=== PATIENT | female | born 1985 | race Caucasian/White ===

== ENCOUNTER 2020-06-20 10:55 | Outpatient (REF) | payer MEDICAID, SELFPAY ==
--- NOTE | 2020-06-20 11:00 | XR_ITS ---
EXAMINATION: XR FOOT, RIGHT CLINICAL INFORMATION: Pain COMPARISON: Previous x-ray September 2019 TECHNIQUE: AP, lateral, and oblique views of the right foot. FINDINGS: There is a healing transverse nondisplaced fracture of the base of the fifth metatarsal bone with some lucency and periosteal reaction still seen on the lateral view. No acute fracture or dislocation is seen. Joint spaces are normal. Soft tissues are normal. XR/XR foot RT min 3V IMPRESSION: Healing nondisplaced fracture of the base of the fifth metatarsal bone.
== END 2020-06-20 10:56 | disposition home or self-care (01) ==
LOC: HO.XRAY 10:55
PROVIDERS: PCP Registered Nurse; Visit Provider Physician Assistant
DX: M17.12 Unilateral primary osteoarthritis, left knee (principal); M79.671 Pain in right foot
CPT/HCPCS: 73630; 99212

== ENCOUNTER 2020-07-18 13:04 | Outpatient (REF) | payer MEDICAID, SELFPAY | END 2020-07-18 13:05 | disposition home or self-care (01) | LOC: HO.LAB 13:04 | PROVIDERS: Visit Provider Internal Medicine | DX: Z20.822 Contact with and (suspected) exposure to COVID-19 (principal) | CPT/HCPCS: 36415; C9803; U0003; U0005 ==

== ENCOUNTER 2020-07-29 11:43 | Outpatient (REF) | payer MEDICAID, SELFPAY | END 2020-07-29 11:44 | disposition home or self-care (01) | LOC: HO.LAB 11:43 | PROVIDERS: Visit Provider Internal Medicine | DX: Z20.822 Contact with and (suspected) exposure to COVID-19 (principal) | CPT/HCPCS: 36415; C9803; U0003; U0005 ==

== ENCOUNTER 2020-08-13 10:00 | Outpatient (RCR) | payer MEDICAID, SELFPAY | END 2021-02-10 10:15 | disposition home or self-care (01) | LOC: HO.PT 10:00 | PROVIDERS: PCP Registered Nurse; Visit Provider Registered Nurse | DX: M25.562 Pain in left knee (principal); G89.29 Other chronic pain | CPT/HCPCS: 97110; 97140; 97162 ==

== ENCOUNTER 2021-05-03 13:55 | Emergency (ER) | payer MEDICAID, SELFPAY ==
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
[2021-05-03 14:10] VITALS: BP 105/63; PULSE 84; RESP 18; TEMP 36.4; O2SAT 97; BMI 31.2
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
== END 2021-05-03 18:42 | disposition home or self-care (01) ==
PROVIDERS: Emergency Provider Emergency Medicine Emergency Medical Services; PCP Registered Nurse
DX: S39.012A Strain of muscle, fascia and tendon of lower back, initial encounter (principal); S16.1XXA Strain of muscle, fascia and tendon at neck level, initial encounter; S86.912A Strain of unspecified muscle(s) and tendon(s) at lower leg level, left leg, initial encounter; G44.309 Post-traumatic headache, unspecified, not intractable; M54.2 Cervicalgia; V47.5XXA Car driver injured in collision with fixed or stationary object in traffic accident, initial encounter; Y93.9 Activity, unspecified; Y92.411 Interstate highway as the place of occurrence of the external cause; Y99.9 Unspecified external cause status
CPT/HCPCS: 70450; 72125; 72128; 72131; 73564; 99283; 99284

== ENCOUNTER 2021-08-10 12:08 | Emergency (ER) | payer MEDICAID, SELFPAY ==
[2021-08-10 12:21] VITALS: BP 123/73; PULSE 68; RESP 18; TEMP 36.9; O2SAT 100; BMI 35.4
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
[2021-08-10 13:59] LABS: MANUAL DIFF FLAG NO
[2021-08-10 14:02] LABS: Basophils Absolute Auto 0.1 X10*3/uL (0.0-0.2); Basophils Percent Auto 1.1 % (0-2); Eosinophils Absolute Auto 0.1 X10*3/uL (0.0-0.4); Eosinophils Percent Auto 0.9 % (0-4); Hematocrit 44.9 % (37.0-47.0); Hemoglobin 14.9 g/dl (12.0-16.0); Imm Gran Abs Auto 0.01 X10*3/uL (0.00-0.03); Imm Gran Pct Auto 0.2 % (0.0-0.4); Lymphocytes Absolute Auto 2.5 X10*3/uL (1.2-4.9); Lymphocytes Percent Auto 45.6 % (20-40); Mean Corpuscular HGB Conc 33.2 g/dl (31.0-35.0); Mean Corpuscular Hemoglobin 29.9 pg (27.0-33.0); Mean Corpuscular Volume 90.2 fL (80.0-98.0); Mean Platelet Volume 10.1 fL (9.4-12.3); Monocytes Absolute Auto 0.4 X10*3/uL (0.1-1.2); Monocytes Percent Auto 7.2 % (2-11); Neutrophils Absolute Auto 2.5 x10*3/uL (2.0-8.3); Platelet Count 315 X10*3/uL (160-400); Red Blood Count 4.98 X10*6/uL (4.20-5.50); Red Cell Distribution Width 13.2 % (11.0-16.0); White Blood Count 5.6 X10*3/uL (4.8-10.8)
[2021-08-10 14:12] LABS: UPreg QC Valid YES; Urine Pregnancy NEGATIVE (NEGATIVE)
[2021-08-10 14:15] LABS: Anion Gap 11 (12-20); Blood Urea Nitrogen 7 mg/dL (9-16); Carbon Dioxide 28 mmol/L (22-29); Chloride 106 mmol/L (96-108); Estimated Glomerular Filt Rate > 60; Glucose Random 136 mg/dL (60-115); Sodium 141 mmol/L (135-145)
[2021-08-10 14:30] LABS: Amphetamine Screen Urine Not Detected (Not Detect); Barbiturates, Urine Not Detected (Not Detect); Benzodiazepines Screen Urine Not Detected (Not Detect); Cannabinoid Screen Urine POSITIVE (Not Detect); Cocaine Screen Urine Not Detected (Not Detect); Fentanyl, urine Not Detected (Not Detect); Opiate Screen Urine Not Detected (Not Detect); Phencyclidine Screen Urine Not Detected (Not Detect)
--- NOTE | 2021-08-10 14:56 | PC.NURSE ---
pt evaluated by care team.
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
== END 2021-08-10 16:38 | disposition home or self-care (01) ==
PROVIDERS: Emergency Provider Emergency Medicine
DX: F10.10 Alcohol abuse, uncomplicated (principal); Y90.9 Presence of alcohol in blood, level not specified; F12.90 Cannabis use, unspecified, uncomplicated; Z72.89 Other problems related to lifestyle; Z65.3 Problems related to other legal circumstances
CPT/HCPCS: 36415; 80048; 80307; 81025; 85025; 99283; 99284

== ENCOUNTER 2022-12-16 08:01 | Outpatient (REF) | payer MEDICAID, SELFPAY | END 2022-12-16 08:02 | disposition home or self-care (01) | LOC: HO.HOSX 08:01 | PROVIDERS: Visit Provider Orthopaedic Surgery | DX: Z13.89 Encounter for screening for other disorder (principal) ==

== ENCOUNTER 2022-12-30 11:38 | Outpatient (REF) | payer MEDICAID, SELFPAY ==
--- NOTE | ~2022-12-30 | XR_ITS ---
EXAMINATION: XR KNEE, LEFT CLINICAL INFORMATION: Left knee pain. COMPARISON: 05/03/2021 TECHNIQUE: Three views of the left knee. FINDINGS: There is mild narrowing of the medial joint space compartment. There is prominent spurring laterally about the medial and lateral joint space compartments. There is severe degenerative change of the patellofemoral joint with loss of the lateral joint space compartment with marginal spurring, sclerosis, and subchondral cyst formation. No significant effusion is appreciated. XR/XR knee LT 3V IMPRESSION: Severe degenerative change of the left patellofemoral joint. Mild degenerative change of the medial and lateral joint space compartments. There has been some mild progression in disease since study of 05/03/2021.
== END 2022-12-30 11:39 | disposition home or self-care (01) ==
LOC: HO.HOSX 11:38
PROVIDERS: Visit Provider Orthopaedic Surgery
DX: M25.562 Pain in left knee (principal)
CPT/HCPCS: 73562; 99202

== ENCOUNTER 2022-12-30 12:47 | Outpatient (AMB) | payer MEDICAID, SELFPAY ==
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
[2022-12-30 13:18] VITALS: BMI 36.9
== END 2022-12-30 16:29 | disposition home or self-care (01) ==
PROVIDERS: Visit Provider Orthopaedic Surgery
DX: M25.562 Pain in left knee (principal)
CPT/HCPCS: 99202

== ENCOUNTER 2023-01-20 09:24 | Outpatient (REF) | payer MEDICAID, SELFPAY ==
--- NOTE | ~2023-01-20 | US_ITS ---
EXAMINATION: US VENOUS ULTRASOUND WITH DOPPLER LOWER EXTREMITY, RIGHT CLINICAL INFORMATION: Right lower extremity pain. COMPARISON: None available. TECHNIQUE: Ultrasound of the deep veins is performed from the hip to the calf with compression sonography and color and pulse Doppler assessment. Spectral analysis with color-flow imaging is performed. FINDINGS: There is normal venous compression and respiratory variation and augmented flow. The visualized common femoral vein, superficial femoral vein, profunda femoral vein, popliteal vein, and the trifurcation region shows no evidence of deep venous thrombosis. If the patient's symptoms persist, followup ultrasound in 5 days 7 days might be of value to exclude proximal propagation from a non-visualized calf vein. US/US venous duplex LE RT IMPRESSION: No DVT demonstrated in the right lower extremity.
== END 2023-01-20 09:25 | disposition home or self-care (01) ==
LOC: HO.US 09:24
PROVIDERS: Visit Provider Emergency Medicine
DX: M25.561 Pain in right knee (principal)
CPT/HCPCS: 93971

== ENCOUNTER 2023-01-21 13:58 | Outpatient (REF) | payer MEDICAID, SELFPAY | END 2023-01-21 13:59 | disposition home or self-care (01) | LOC: HO.XRAY 13:58 | PROVIDERS: PCP Registered Nurse; Visit Provider Orthopaedic Surgery | DX: Z13.89 Encounter for screening for other disorder (principal) ==

== ENCOUNTER 2023-02-17 07:43 | Outpatient (REF) | payer MEDICAID, SELFPAY | END 2023-02-17 07:44 | disposition home or self-care (01) | LOC: HO.HOSX 07:43 | PROVIDERS: Visit Provider Orthopaedic Surgery | DX: Z13.89 Encounter for screening for other disorder (principal) ==

== ENCOUNTER 2023-02-18 11:25 | Outpatient (AMB) | payer MEDICAID, SELFPAY ==
--- NOTE | 2023-02-18 11:35 | MHC.OFFVIS ---
Intake Vital Signs 02/18/23 11:37 Height 5 ft 9 in Weight 250 lb BMI 36.9 Intake Visit Reasons: New Prob - right knee pain Intake Note: Keri is a 37 year old female who presents today with a new problem of right knee pain and giving way. The patient states that she injured her right knee several years ago while playing sports. She twisted her knee and had acute onset of pain. Since that time her symptoms have gotten worse in spite of continued non operative treatments. She has had injections in the past which gave her minimal relief. She has also done physical therapy for 12 weeks over the last 6 months which aggravated her pain. She has tried Tylenol and Celebrex which gave her minimal relief. She states that her right knee will give out several times per day. She also has similar symptoms in her left knee. The patient states that her right knee symptoms are more severe than are her left at this time. 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 Physical Exam Vital Signs: BMI result Body Mass Index 36.9 Const Other: Well-nourished well-developed very friendly female awake alert and oriented x3 in no acute distress Extrem Other: Bilateral lower extremity examination shows good capillary refill, no skin lesions noted, normal sensation light touch Right knee examination shows a minimal effusion, mild crepitus with range of motion, tenderness along her medial joint line, positive Nash's test, no instability Results Reviewed Results Reviewed: X-rays of the patient's right knee show mild to moderate diffuse joint space narrowing, no acute bony abnormalities Assessment & Plan Assessment & Plan (1) Right knee pain: Code(s): M25.561 - Pain in right knee Plan: Ms. Eric Angulo presents with progressively worsening right knee pain and mechanical symptoms most likely due to a medial meniscus tear. Thus, I will send the patient for an MRI of her right knee for further evaluation. I will see her back once the MRI is completed to discuss the findings and treatment options. Feel free to call me at any time should questions regarding her orthopedic management arise. I spent 22 minutes in reviewing the patient's records and imaging studies, seeing the patient and documenting in the medical record. Orders: Orders MR knee RT wo con Today M25.561 - Pain in right knee XR knee RT 3V Today M25.561 - Pain in right knee Coding Level of Care Code Est Pt Level 2 (87283) Diagnoses Right knee pain M25.561
[2023-02-18 11:37] VITALS: BMI 36.9
== END 2023-02-18 11:57 | disposition home or self-care (01) ==
PROVIDERS: PCP Registered Nurse; Visit Provider Orthopaedic Surgery
DX: M25.561 Pain in right knee (principal)
CPT/HCPCS: 99212

== ENCOUNTER 2023-02-18 11:25 | Outpatient (REF) | payer MEDICAID, SELFPAY ==
--- NOTE | ~2023-02-18 | XR_ITS ---
EXAMINATION: XR KNEE, RIGHT CLINICAL INFORMATION: Pain. COMPARISON: None available. TECHNIQUE: AP, lateral and axial views of the right knee are submitted. FINDINGS: Bony alignment and mineralization are normal. The lateral and medial joint space compartments are well-maintained. There is moderately severe narrowing of the patellofemoral compartment, most pronounced laterally. There is a patella kimber configuration. There is tricompartment peripheral osteophyte formation. No fracture, dislocation or joint effusion is seen. An accessory ossification center is seen at the lateral aspect of the patella. There is no foreign body. XR/XR knee RT 3V IMPRESSION: 1. There is tricompartment osteoarthritic change of the right knee, most pronounced in the patellofemoral compartment, where it is moderately severe. 2. 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 3. There is no fracture, dislocation or joint effusion.
== END 2023-02-18 11:26 | disposition home or self-care (01) ==
LOC: HO.HOSX 11:25
PROVIDERS: PCP Registered Nurse; Visit Provider Orthopaedic Surgery
DX: M25.561 Pain in right knee (principal)
CPT/HCPCS: 73562; 99212

== ENCOUNTER 2023-05-20 10:42 | Outpatient (AMB) | payer MEDICAID, SELFPAY ==
[2023-05-20 11:40] VITALS: BMI 36.9
--- NOTE | 2023-05-20 11:40 | A.OFFVIS_ITS ---
Intake Vital Signs 05/20/23 11:40 Height 5 ft 9 in Weight 250 lb BMI 36.9 Intake Visit Reasons: OV- MRI Review RT Knee Medial Meniscus tear Intake Note: Keri is a 37 year old female who presents today for an MRI review of her right knee. She was last seen with Dr. Andrea who referred her to Dr. Zayas for surgical discussion. Allergies No Known Allergies [No Known Allergies*] Allergy (Verified 05/20/23 11:40) HPI OV- MRI Review RT Knee Medial Meniscus tear HPI Details Keri is a 37 year old woman who presents for an MRI review of her right knee pain. She complains of pain and weakness with daily activity. She says her knee gives way on her several times daily, and she has a hx of falls. She found minimal relief from injections or Celebrex, and says PT made her pain worse. She reports injuring her knee several years ago while playing sports, and has been having pain since. She reports similar symptoms in her left knee, but this is not as severe as her right knee. 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 Review of Systems Const All systems reviewed & are unremarkable except as noted in HPI and below Physical Exam Vital Signs: BMI result Body Mass Index 36.9 Const General: no acute distress, alert and awake Orientation/consciousness: patient oriented x3 HEENT Head: Yes normocephalic and Yes atraumatic Eyes EOM: EOMs intact bilaterally Resp Effort & Inspection: normal respiratory effort and able to speak in complete sentences Cardio Jugular venous distension: no JVD Skin General skin exam: turgor normal Rashes: no rashes Neuro General: patient oriented x3 Extrem Other: 1+valgus instability right valgus alignment bilaterally 1+ lachmans with pivot shift not appreciable lateral subluxation of patella Psych Appearance: grossly normal Affect: normal affect Attitude: cooperative Results Reviewed Results Reviewed: I personally reviewed relevant radiographs. There is tricompartment osteoarthritic change of the right knee, most pronounced in the patellofemoral compartment, where it is moderately severe. 2. 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 3. There is no fracture, dislocation or joint effusion. I personally reviewed the MR images. ACL tear and G3 Distal MCL Assessment & Plan Assessment & Plan (1) Valgus deformity, not elsewhere classified, left knee: Code(s): M21.062 - Valgus deformity, not elsewhere classified, left knee Plan: Valgus pattern OA that is severe on right. She is 37 and her BMI is 36. This is a difficult problem. For now PT and weight loss (2) Arthritis of right knee: Code(s): M17.11 - Unilateral primary osteoarthritis, right knee (3) ACL tear: Code(s): S83.519A - Sprain of anterior cruciate ligament of unspecified knee, initial encounter Plan: ACL tear in setting of OA. surgery contra indicated (4) Tear of MCL (medial collateral ligament) of knee: Code(s): S83.419A - Sprain of medial collateral ligament of unspecified knee, initial encounter Plan: brace given and PT rx written Plan Scribed for Zia Zayas MD by Broderick Hope, medical psychotherapist, on 05/20/23 at 11:55 AM, EST. Orders: Orders PT Evaluation and Treatment Today M17.11 - Unilateral primary osteoarthritis, right knee, M21.062 - Valgus deformity, not elsewhere classified, left knee, S83.419A - Sprain of medial collateral ligament of unspecified knee, initial encounter, S83.519A - Sprain of anterior cruciate ligament of unspecified knee, initial encounter Coding Level of Care Code Est Pt Level 4 (64656) Diagnoses Valgus deformity, not elsewhere classified, left knee M21.062 Arthritis of right knee M17.11 ACL tear S83.519A Tear of MCL (medial collateral ligament) of knee S83.419A
== END 2023-05-20 12:44 | disposition home or self-care (01) ==
PROVIDERS: PCP Registered Nurse; Visit Provider Orthopaedic Surgery
DX: M21.062 Valgus deformity, not elsewhere classified, left knee (principal); M17.11 Unilateral primary osteoarthritis, right knee; S83.511A Sprain of anterior cruciate ligament of right knee, initial encounter; S83.411A Sprain of medial collateral ligament of right knee, initial encounter
CPT/HCPCS: 99214

== ENCOUNTER → 2023-05-20 10:42 | Outpatient (BNVA) | payer MEDICAID, SELFPAY | PROVIDERS: PCP Registered Nurse; Visit Provider Orthopaedic Surgery | DX: S83.511A Sprain of anterior cruciate ligament of right knee, initial encounter (principal); S83.411A Sprain of medial collateral ligament of right knee, initial encounter; M21.062 Valgus deformity, not elsewhere classified, left knee; M17.11 Unilateral primary osteoarthritis, right knee | CPT/HCPCS: 99212 ==

== ENCOUNTER 2024-08-17 15:58 | Outpatient (REF) | payer MEDICAID, SELFPAY ==
--- NOTE | ~2024-08-17 | XR_ITS ---
EXAMINATION: XR HAND 3 OR MORE VIEWS LEFT HISTORY: left hand pain and swelling after dog bite COMPARISON: There are no prior studies available for comparison. FINDINGS: Three views of the left hand are submitted. Osseous mineralization is normal. There is no fracture or dislocation. The joint spaces are preserved. The soft tissues are unremarkable. XR/XR hand LT min 3V IMPRESSION: Unremarkable examination of the left hand. Electronically signed by: Rich Muse MD 08/20/2024 08:00 AM EDT
--- OUTSIDE RECORDS SUMMARY | 2024-08-17 17:20 | XMS_ITS | Encounter Summary ---
Author Organization [employer] Address [address] [facility] 7t [place] [address] Care Team Providers Care Rewrite Editor Name Role Phone Roxy Pollack Primary Care Provider [phone] Jerel Bhagat Unavailable Unavailable Reason for Visit * Reason Comments Med Refill Encounter Details Date Type Department Care Team ([facility] st Contact Info) Description 08/06/2024 Refill [facility] MED & PEDS [address] [place] [address] Roxy Pollack FNP [address] [place] [address] Primary osteoarthritis of right knee Social History Tobacco Use Types Packs/Day Years Used Date Smoking Tobacco: Every Day Cigarettes Passive Smoke Exposure: Current Smokeless Tobacco: Never Alcohol Use Standard Drinks/Week Comments Yes 3 (1 standard drink = 0.6 oz pur e alcohol) ETOH use 'socially' Depression Answer Date Recorded Patient Health Questionnaire-9 Score 2 09/13/2023 Patient Health Questionnaire-9 Score 2 09/13/2023 Last PHQ-9: Questionnaire Data Not on file 0 09/13/2023 Housing Stability Answer Date Recorded What is your housing situation today? I do not have housing (Staying with others, in a hotel, in a mcc, living outside on the street, on a beach, in a car, or in a park 10/24/[address] you li ve. Do you have problems with any of the following? None of the above 10/24/2023 Food Insecurity Answer Date Recorded Within the past 12 months, y ou worried that your food would run out before you got money to buy more: Never True 03/28/2023 Within the past 12 months,th e food you bought just didn't last and you didn't have enough money to get more: Never True Transportation Answer Date Recorded In the past 12 months, has l ack of transportation kept you from medical appts, meetings, work or from getting things needed for daily living? Yes, it has kept me from medical appointments or getting medications. 10/24/2023 Utilities Answer Date Recorded In the past 12 months, has t he electric, gas, oil or water company threatened to shut off services in your home? No 03/28/2023 Depression Answer Date Recorded Patient Health Questionnaire-2 Score 0 09/13/2023 Comments No Sex and Gender Information Value Date Recorded Sex Assigned at Female 04/12/2022 10:36 AM EDT Legal Sex Female 10:36 AM EDT Gender Identity Female 04/12/2022 10:36 AM EDT Sexual Orientation Choose not to disclose 2021 10:36 AM EDT documented as of this encounter Plan of Treatment Upcoming Encounters Date Type Department Care Team (Late st Contact Info) Description 09/14/2024 1:00 PM EDT Office Visit [facility] OPTOMETRY [address] [place] [address] Lorene Todd, OD [address] [place] [address] 09/21/2024 9:30 AM EDT Office Visit [facility] ADULT DENTAL [address] [place] [address] Nikhil Rodriguez DDS [address] [place] [address] documented as of this encounter Visit Diagnoses Diagnosis Primary osteoarthritis of right knee documented in this encounter Additional Health Concerns Assessment Noted Time PHQ-9 Depression Total Score: 2 09/13/19 24 10:45 AM EDT documented as of this encounter Care Teams Rewrite Editor Relationship Specialty Start Date End Date Roxy Pollack FNP [address] [place] [address] PCP - General Family Medicine 02/06/22 Jerel Bhagat FNP [address] [place] [address] Nurse Practitioner Family Medicine 05/09/23 documented as of this encounter
--- OUTSIDE RECORDS SUMMARY | 2024-08-17 17:20 | XMS_ITS | Encounter Summary ---
Author Organization [employer] Address 75 [facility] 7t [place] [address] Care Team Providers Care House Director Name Role Phone Roxy Pollack Primary Care Provider [phone] Jerel Bhagat Unavailable Unavailable Reason for Visit * Reason Comments Med Refill Encounter Details Date Type Department Care Team ([facility] st Contact Info) Description 06/23/2022 Refill [facility] MED[facility] [address] [place] [address] Jerel Bhagat FNP Anxiety Social History Tobacco Use Types Packs/Day Years Used Date Smoking Tobacco: Every Day Cigarettes Alcohol Use Standard Drinks/Week Comments Yes 3 (1 standard drink = 0.6 oz pur e alcohol) ETOH use 'socially' Comments Unknown Sex and Gender Information Value Date Recorded Sex Assigned at Female 04/12/2022 10:36 AM EDT Legal Sex Female 10:36 AM EDT Gender Identity Female 04/12/2022 10:36 AM EDT Sexual Orientation Choose not to disclose 2021 10:36 AM EDT COVID-19 Exposure Response Date Recorded In the last 10 days, have yo u been in contact with someone who was confirmed or suspected to have Coronavirus/COVID-19? No / Unsure 06/24/2022 12:35 PM EST documented as of this encounter Miscellaneous Notes * Telephone Encounter - Asia Alves RN - 06/24/2022 8:17 AM EST Has INSTALLMENT LOAN COLLECTOR RV appt today. Will review medication refill request at that time and forward to PCP. documented in this encounter Plan of Treatment Upcoming Encounters Date Type Department Care Team (Late st Contact Info) Description 09/14/2024 1:00 PM EDT Office Visit [facility] OPTOMETRY [address] [place] [address] RenettatraciLorene, OD [address] [place] [address] 09/21/2024 9:30 AM EDT Office Visit [facility] ADULT DENTAL [address] [place] [address] Nikhil Rodriguez DDS [address] [place] [address] documented as of this encounter Visit Diagnoses Diagnosis Anxiety Anxiety state, unspecified documented in this encounter Care Teams House Director Relationship Specialty Start Date End Date Roxy Pollack FNP [address] [place] [address] PCP - General Family Medicine 02/06/22 Jerel Bhagat FNP [address] [place] [address] Nurse Practitioner Family Medicine 05/09/23 documented as of this encounter
--- OUTSIDE RECORDS SUMMARY | 2024-08-17 17:20 | XMS_ITS | Encounter Summary ---
Author Organization [employer] Address [address] [facility] 7t [place] [address] Care Team Providers Care Signaler Name Role Phone Jaki Roxy SALES PROGRAM MANAGER Primary Care Provider [phone] Jerel Bhagat Unavailable Unavailable Reason for Visit * Reason Comments Routine Cleaning Dental Exam FMX Perio chart Encounter Details Date Type Department Care Team (Late st Contact Info) Description 07/25/2024 1:00 PM EST Office Visit [facility] ADULT DENTAL [address] [place] [address] Rene Gaviriaaris [address] [place] [address] Fractured dental tenriism with loss of material (Primary Dx); Dental calculus; Gingival bleeding; Periodontal disease Social History Tobacco Use Types Packs/Day Years Used Date Smoking Tobacco: Every Day Cigarettes Passive Smoke Exposure: Current Smokeless Tobacco: Never Tobacco Cessation:Ready to Q uit: Not Asked; Counseling Given: Not Answered Alcohol Use Standard Drinks/Week Comments Yes 3 [...] with others, in a hotel, in a skilled nursing, living outside on the street, on a [...] the past 12 months, has t he [employer], gas, oil or water company threatened to [...] AM EDT documented as of this encounter Last Filed Vital Signs Vital Sign Reading Time Taken Comments Blood Pressure 128/76 07/25/2024 1:10 PM EST Pulse - - Temperature - - Respiratory Rate - - Oxygen Saturation - - Inhaled Oxygen Concentration - - Weight - - Height - - Body Mass Index - - documented in this encounter Progress Notes * Nalini Gaviria - 07/25/2024 1:00 PM EST Patient ID: Keri Angulo is a 39 y.o. female. Time Out: Timeout Date: 07/25/24, Timeout Time: 1312 (FMX, P. exam , Perio chart, Prophy) Location: [facility] Tooth: Maxilla and Mandible Procedure: Exam, X-rays, and Perio chart, Gross debridement . Dr. Rodriguez did exam Verified the above with patient, orthotic assistant, and provider. Confirmed via patient's chart, intraorally and by radiographs. Aircraft Accessories Mechanic: not applicable Medical Hx: Vitals: Blood pressure 128/76. Medications, Med Hx reviewed with patient and updated in chart. Treatment Provided Dental procedures in this visit D1110 - PROPHYLAXIS - ADULT (Completed) Service provider: Nalini Gaviria Billing provider: Nikhil Rodriguez DDS D0210 - DIAGNOSTIC - DIAGNOSTIC IMAGING - INTRAORAL - COMPREHENSIVE SERIES OF RADIOGRAPHIC IMAGES (Completed) Service provider: Nalini Gaviria Billbeatriz provider: Nikhil Rodriguez DDS D1330 - ORAL HYGIENE INSTRUCTIONS (Completed) Service provider: Nalini Gaviria Billbeatriz provider: Nikhil Rodriguez DDS D9450 - ADJUNCTIVE GENERAL SERVICES - PROFESSIONAL VISITS - CASE PRESENTATION, SUBSEQUENT TO DETAILED AND EXTENSIVE TREATMENT PLANNING (Completed) Service provider: Nalini Gaviria Billing provider: Nikhil Rodriguez DDS Instruments Used: Ultrasonic Scalers Fluoride: N/A Oral Cancer Screening: No lesions Head/Neck Exam: No Lesions, tongue rings and lower lip ring Calculus: Heavy, tenacious generalized Plaque: Moderate and Generalized Stain: Moderate, tobacco Bleeding: Moderate and Generalized Gingiva: Perio Charting Completed, Bleeding on probing, Recession- localized, and Edematous OH: needs improvement Perio Chart: Completed: 2 mm to 7 mm in depths, Requesting 4 quads SRP D4341. Oral hygiene instructions provided to patient including brushing technique and flossing. Recommendations: Fairfax two times daily, modified hemphill technique, Floss daily, Electric toothbrush, Soft bristle toothbrush, Fairfax Tongue, Anti-sensitivity toothpaste Recall Frequency: SRP if approved NV: restorations with Dr. Rodriguez Hygienist: Nalini Gaviria RDH * Nikhil Rodriguez DDS - 07/25/2024 1:00 PM EST Dental procedures in this visit D1110 - PROPHYLAXIS - ADULT (Completed) Service provider: Nalini Gaviria Billbeatriz provider: Nikhil Rodriguez DDS D0210 - DIAGNOSTIC - DIAGNOSTIC IMAGING - INTRAORAL - COMPREHENSIVE SERIES OF RADIOGRAPHIC IMAGES (Completed) Service provider: Nalini Gaviria Billbeatriz provider: Nikhil Rodriguez DDS D1330 - ORAL HYGIENE INSTRUCTIONS (Completed) Service provider: Nalini Hernández provider: Nikhil Rodriguez DDS D9450 - ADJUNCTIVE GENERAL SERVICES - PROFESSIONAL VISITS - CASE PRESENTATION, SUBSEQUENT TO DETAILED AND EXTENSIVE TREATMENT PLANNING (Completed) Service provider: Nalini Gaviria Billing provider: iNkhil Rodriguez DDS D0120 - PERIODIC ORAL EVALUATION - ESTABLISHED PATIENT (Completed) Service provider: Nikhil Rodriguez DDS Billing provider: Nikhil Rodriguez DDS Patient ID: Keri Angulo is a 39 y.o. female. Time Out: Timeout Date: 07/25/24, Timeout Time: 1312 (FMX, P. exam , Perio chart, Prophy) Location: [facility] Tooth: Maxilla and Mandible Procedure: Exam, X-rays, and Prophylaxis Verified the above with patient, orthotic assistant, and provider. Confirmed via patient's chart, intraorally and by radiographs. Aircraft Accessories Mechanic: not applicable Chief Complaint Patient presents with Routine Cleaning Dental Exam FMX Perio chart Medical Hx: Vitals: Blood pressure 128/76. Past Medical History: Diagnosis Date Anxiety Arthritis Asthma Depression Medications: Outpatient Encounter Medications as of 07/25/2024 Medication Sig Dispense Refill acetaminophen (Tylenol) 325 MG capsule Take 2 capsules (650 mg) by mouth every 8 (eight) hours if needed for moderate pain. With food. 120 capsule 0 albuterol 108 (90 Base) MCG/ACT inhaler INHALE 2 PUFFS BY MOUTH EVERY 4-6 HOURS NEEDED FOR WHEEZING OR SHORTNESS OF BREATH 18 g 1 clonazePAM (KlonoPIN) 0.5 MG tablet Take 1 tablet (0.5 mg) by mouth 1 (one) time if needed for anxiety. Take at noon. 28 tablet 0 clonazePAM (KlonoPIN) 1 MG tablet Take 1 tablet (1 mg) by mouth if needed in the morning and at bedtime for anxiety. 56 tablet 0 Dextromethorphan-guaiFENesin (Mucinex DM) 30-600 MG tablet sustained-release 12 hour Use 1 tab TID 28 tablet 0 Diclofenac Sodium 1 % gel Apply thin layer by topical route (quantity as directed on package insert) to affected area of pain 3 times daily as needed. 50 g 3 hydrOXYzine pamoate (Vistaril) 50 MG capsule Take 1 capsule (50 mg) by mouth if needed in the morning, at noon, and at bedtime for anxiety. 90 capsule 0 lidocaine (Lidoderm) 5 % patch Apply 1 patch topically if needed each day (pain). Remove & discard patch within 12 hours or as directed by . 30 patch 2 loratadine (Claritin) 10 MG tablet TAKE 1 TABLET BY MOUTH EVERY DAY 90 tablet 0 nabumetone (Relafen) 500 MG tablet Take 1 tablet (500 mg) by mouth if needed in the morning and at bedtime (knee pain). 60 tablet 3 naloxone (Narcan) 4 mg/0.1 mL nasal spray FOR SUSPECTED OPIOID OVERDOSE. SPRAY 0.1mL IN ONE NOSTRIL. REPEAT IN ALTERNATE NOSTRIL 2-3 MINUTES IF NEEDED. SEEK MEDICAL ATTENTION IMMEDIATELY EVEN IF PATIENT RESPONDS. 2 each 1 QUEtiapine (SEROquel) 100 MG tablet Take 1 tablet (100 mg) by mouth Once per day. at noon. Also take quetiapine 300 mg twice a day. 30 tablet 1 QUEtiapine (SEROquel) 300 MG tablet Take 1 tablet (300 mg) by mouth 2 times daily. Also take quetiapine 100 mg at noon. 60 tablet 1 tiZANidine (Zanaflex) 2 MG tablet TAKE 1 TABLET BY MOUTH EVERY 8 HOURS NEEDED FOR MUSCLE SPASMS,DO NOT EXCEED 3 DOSES IN 24 HOURS 30 tablet 0 traZODone (Desyrel) 100 MG tablet Take 1 tablet (100 mg) by mouth at bedtime. 30 tablet 1 valACYclovir (Valtrex) 500 MG tablet TAKE 1 TABLET BY MOUTH ONCE DAILY 90 tablet 1 chlorhexidine (Peridex) 0.12 % solution Please use 15 ml solution orally to swish for 30 seconds every night before bed. Spit, do not rinse. (Patient not taking: Reported on 07/25/2024) 120 mL 0 [DISCONTINUED] albuterol 108 (90 Base) MCG/ACT inhaler INHALE 2 PUFFS BY MOUTH EVERY 4 HOURS NEEDED FOR WHEEZING OR SHORTNESS OF BREATH 18 g 0 No facility-administered encounter medications on file as of 07/25/2024. Objective HPI Slight discomfort with temp changes on L L side Head and Neck Exam: Lymph Nodes, Lips, Palate, Buccal Mucosa, Floor of Mouth, Tongue, Tonsils, Alveolar Ridges, Oropharynx, Salivary Ducts, and Vestibules normal appearance Details: Skin piercing, also tongue with large ring OCS: negative Dental Exam As charted Plaque Calculus Multiple large amalgams Fractured tooth # 20 Needing and recommended SRP Reference tooth chart for additional findings. Oral Cancer Risk: Low Risk Oral Hygiene Instructions: Fairfax two times daily, modified hemphill technique, Floss daily, Electric toothbrush, Soft bristle toothbrush, Fairfax Tongue Caries Risk Assessment: Medium- one risk factor Assessment/Plan BRAYDEN X Ray Prophy Apply for SRP all quads Restorations Patient tolerated procedure well, all questions answered and expressed understanding. Dismissed in good condition. NV: Nitin / Fulfillment Coordinator: Nalini Gaviria RDH Dentist: Nikhil Rodriguez DDS documented in this encounter Plan of Treatment Upcoming Encounters Date Type Department Care Team (Late st Contact Info) Description 09/14/2024 1:00 PM EDT Office Visit [facility] OPTOMETRY [address] [place] [address] TarkaLorene, OD [address] [place] [address] 09/21/2024 9:30 AM EDT Office Visit [facility] ADULT DENTAL [address] [place] [address] Nikhil Rodriguez DDS [address] [place] [address] Scheduled Orders Name Type Priority Associated Diagnoses Orde r Schedule UL UL PERIODONTAL SCALING AND ROOT PLANING - 4 OR MORE TEETH PER QUADRANT Dental Routine 1 Occurr ences starting 07/25/2024 LL LL PERIODONTAL SCALING AND ROOT PLANING - 4 OR MORE TEETH PER QUADRANT Dental Routine 1 Occurr ences starting 07/25/2024 UR UR PERIODONTAL SCALING AND ROOT PLANING - 4 OR MORE TEETH PER QUADRANT Dental Routine 1 Occurr ences starting 07/25/2024 LR LR PERIODONTAL SCALING AND ROOT PLANING - 4 OR MORE TEETH PER QUADRANT Dental Routine 1 Occurr ences starting 07/25/2024 20 DO 20 DO RESTORATIVE - AMALGAM RESTORATIONS (INCLUDING POLISHING) - AMALGAM - TWO SURFACES, PRIMARY OR PERMANENT Dental Routine 1 Occurren sulema starting 07/25/2024 9 MIL 9 MIL RESTORATIVE - RESIN-BASED COMPOSITE RESTORATIONS - DIRECT - RESIN-BASED COMPOSITE - THREE SURFACES, ANTERIOR Dental Routine 1 Occu rrences starting 07/25/2024 8 MIL 8 MIL RESTORATIVE - RESIN-BASED COMPOSITE RESTORATIONS - DIRECT - RESIN-BASED COMPOSITE - THREE SURFACES, ANTERIOR Dental Routine 1 Occu rrences starting 07/25/2024 documented as of this encounter Procedures Procedure Name Priority Date/Time Associated Diagnosis Comments PROPHYLAXIS - ADULT Routine 07/25/2024 1 :00 PM EST Dental calculus Gingival bleeding Periodontal disease PERIODIC ORAL EVALUATION - ESTABLISHED PATIENT Routine 07/25/2024 1:00 PM EST ORAL HYGIENE INSTRUCTIONS Routine 07/25/2024 1:00 PM EST Dental calculus Gingival bleeding Periodontal disease INTRAORAL - COMPLETE SERIES OF RADIOGRAPHIC IMAGES Routine 07/25/2024 1:00 PM EST Dental calculus Gingival bleeding Periodontal disease CASE PRESENTATION, DETAILED AND EXTENSIVE TREATMENT PLANNING Routine 07/25/2024 1:00 PM EST Dental calculus Gingival bleeding Periodontal disease 32 O AMALGAM FILLING Routine 07/25/2024 12:00 AM EST 31 AMALGAM FILLING Routine 12:00 AM EST 28 DO AMALGAM FILLING Routine 07/25/2024 12:00 AM EST 20 DO AMALGAM FILLING Routine 07/25/2024 12:00 AM EST 19 MODB AMALGAM FILLING Routine 07/25/19 12:00 AM EST 18 MO AMALGAM FILLING Routine 07/25/2024 12:00 AM EST 15 MO AMALGAM FILLING Routine 07/25/2024 12:00 AM EST 14 DO AMALGAM FILLING Routine 07/25/2024 12:00 AM EST 12 DO AMALGAM FILLING Routine 07/25/2024 12:00 AM EST 13 MO AMALGAM FILLING Routine 07/25/2024 12:00 AM EST 4 MOD AMALGAM FILLING Routine 07/25/2024 12:00 AM EST 3 MOD AMALGAM FILLING Routine 07/25/2024 12:00 AM EST 2 MO AMALGAM FILLING Routine 07/25/2024 12:00 AM EST 29 MO AMALGAM FILLING Routine 07/25/2024 12:00 AM EST 30 EXTRACTION Routine 07/25/2024 12:00 AM EST documented in this encounter Visit Diagnoses Diagnosis Fractured dental tenriism with loss of material- Primary Fractured dental restorative material with loss of material Dental calculus Accretions on teeth Gingival bleeding Other specified periodontal diseases Periodontal disease Unspecified gingival and periodontal disease documented in this encounter Additional Health Concerns Assessment Noted Time PHQ-9 Depression Total Score: 2 09/13/19 24 10:45 AM EDT documented as of this encounter Care Teams Signaler Relationship Specialty Start Date End Date Roxy Pollack FNP [address] [place] [address] PCP - General Family Medicine 02/06/22 Jerel Bhagat FNP [address] [place] [address] Nurse Practitioner Family Medicine 05/09/23 documented as of this encounter
--- OUTSIDE RECORDS SUMMARY | 2024-08-17 17:20 | XMS_ITS | Encounter Summary ---
Author Organization [employer] Address [address] [facility] [address] [place] [address] Care Team Providers Care Flight Data Technician Name Role Phone Jourdankhalida Roxy CRUSHER SCREEN REPAIRER Primary Care Provider [phone] Jerel Bhagat Unavailable Unavailable Encounter Details Date Type Department Care Team ([facility] st Contact Info) Description 07/25/2024 Telephone [facility] [address] [place] [address] Paulina Lugo RN [address] [place] [address] Social History Tobacco Use Types Packs/Day Years [...] with others, in a hotel, in a long-term, living outside on the street, on a [...] AM EDT documented as of this encounter Miscellaneous Notes * Telephone Encounter - Paulina Lugo RN - 07/25/2024 7:52 AM EST Hi, can you please schedule a f/u with Omar Momin to discuss medication Clonazepam, plan is to titrate medication. Ty! documented in this encounter Plan of Treatment Upcoming Encounters Date Type Department Care Team (Late st Contact Info) Description 09/14/2024 1:00 PM EDT Office Visit [facility] OPTOMETRY [address] [place] [address] Lorene Todd, OD [address] [place] [address] 09/21/2024 9:30 AM EDT Office Visit [facility] ADULT DENTAL [address] [place] [address] Nikhil Rodriguez DDS [address] [place] [address] documented as of this encounter Visit Diagnoses Not on filedocumented in this encounter Additional Health Concerns Assessment Noted Time PHQ-9 Depression Total Score: 2 09/13/19 24 10:45 AM EDT documented as of this encounter Care Teams Flight Data Technician Relationship Specialty Start Date End Date Roxy Pollack FNP [address] [place] [address] PCP - General Family Medicine 02/06/22 Jerel Bhagat FNP [address] [place] [address] Nurse Practitioner Family Medicine 05/09/23 documented as of this encounter
--- OUTSIDE RECORDS SUMMARY | 2024-08-17 17:20 | XMS_ITS | Encounter Summary ---
Author Organization [facility] Address [address] [facility] 7t [place] [address] Care Team Providers Care Anvil Worker Name Role Phone Roxy Pollack Primary Care Provider [phone] Jerel Bhagat Unavailable Unavailable Encounter Details Date Type Department Care Team (Latest Contact Info) Description 10/07/2020 Abstract [facility] CONVERSIONS Dental, Provider, DDS Social History Tobacco Use Types Packs/Day Years Used Date Smoking Tobacco: Never Assessed Comments Unknown Sex and Gender Information Value [...] Description 09/14/2024 1:00 PM EDT Office Visit [facility] OPTOMETRY [address] [place] [address] Lorene Todd, OD [address] [place] [address] 09/21/2024 9:30 AM EDT Office Visit [facility] ADULT DENTAL [address] [place] [address] Nikhil Rodriguez DDS [address] [place] [address] documented as of this encounter Visit Diagnoses Not on filedocumented in this encounter Care Teams Anvil Worker Relationship Specialty Start Date End Date Roxy Pollack FNP [address] [place] [address] PCP - General Family Medicine 02/06/22 Jerel Bhagat FNP [address] [place] [address] Nurse Practitioner Family Medicine 05/09/23 documented as of this encounter
--- OUTSIDE RECORDS SUMMARY | 2024-08-17 17:20 | XMS_ITS | Encounter Summary ---
Author Organization [employer] Address 75 [facility] 7 [place] [address] Care Team Providers Care Health Services Coordinator Name Role Phone Roxy Pollack Primary Care Provider [phone] Jerel Bhagat Unavailable Unavailable Reason for Visit * Reason Onset Date Comments Med Refill 07/23/2024 Encounter Details Date Type Department Care Team ([facility] Contact Info) Description 07/23/[address] [facility] MED & PEDS [address] [place], [place] [id number] Roxy Pollack FNP [address] [place] [address] Med Refill Social History Tobacco Use Types Packs/Day Years [...] the past 12 months, has t he [employer], [employer], oil or water made.com threatened to shut off services in your [...] encounter Miscellaneous Notes * Telephone Encounter - Jeanne Govea LPN - 07/23/2024 1:28 PM EST Received request on clonazePAM (KlonoPIN) 0.5 MG tablet documented in this encounter Plan of Treatment Upcoming Encounters Date Type Department Care Team (Late st Contact Info) Description 09/14/2024 1:00 PM EDT Office Visit [facility] OPTOMETRY [address] [place] [address] Lorene Todd, OD [address] [place] [address] 09/21/2024 9:30 AM EDT Office Visit [facility] ADULT DENTAL [address] [place] [address] Nikhil Rodriguez DDS [address] [place] [address] documented as of this encounter Visit Diagnoses Not on filedocumented in this encounter Additional Health Concerns Assessment Noted Time PHQ-9 Depression Total Score: 2 09/13/19 24 10:45 AM EDT documented as of this encounter Care Teams Health Services Coordinator Relationship Specialty Start Date End Date Roxy Pollack FNP [address] [place] [address] PCP - General Family Medicine 02/06/22 Jerel Bhagat FNP [address] [place] [address] Nurse Practitioner Family Medicine 05/09/23 documented as of this encounter
--- OUTSIDE RECORDS SUMMARY | 2024-08-17 17:20 | XMS_ITS | Encounter Summary ---
Author Organization [employer] Address [address] [facility] 7 [place] [address] Care Team Providers Care Telephone Collector Name Role Phone Anita Lindsay Primary Care Provider [phone] Jerel Bhagat Unavailable Unavailable Reason for Visit * Reason Comments Med Refill Encounter Details Date Type Department Care Team ([facility] st Contact Info) Description 07/23/2024 Refill [facility] CHC MED & PEDS [address] [place] [address] Anita Lindsay FNP [address] [place] [address] Anxiety Social History Tobacco Use Types Packs/Day [...] with others, in a hotel, in a usp, living outside on the street, on a [...] encounter Miscellaneous Notes * Telephone Encounter - LETI Luna - 07/24/2024 5:36 PM EST Janes Oneill manages my schedule. * Addendum Note - MAGALI Posey - 07/24/2024 5:32 PM ESTAddended by: ANITA LINDSAY on: 07/24/2024 05:32 PM Modules accepted: Orders * Telephone Encounter - LETI Luna - 07/24/2024 3:39 PM EST Pt needs a follow up appointment. Plan is to titrate medication. documented in this encounter Plan of Treatment Upcoming Encounters Date Type Department Care Team (Late st Contact Info) Description 09/14/2024 1:00 PM EDT Office Visit [facility] OPTOMETRY [address] [place] [address] Lorene Todd, OD [address] [place] [address] 09/21/2024 9:30 AM EDT Office Visit [facility] ADULT DENTAL [address] [place] [address] Nikhil Rodriguez DDS [address] [place], [place] [id number] documented as of this encounter Visit Diagnoses Diagnosis Anxiety Anxiety state, unspecified documented in this encounter Additional Health Concerns Assessment Noted Time PHQ-9 Depression Total Score: 2 09/13/19 24 10:45 AM EDT documented as of this encounter Care Teams Telephone Collector Relationship Specialty Start Date End Date Anita Lindsay FNP [address] [place] [address] PCP - General Family Medicine 02/06/22 Jerel Bhagat FNP [address] [place] [id number] Nurse Practitioner Family Medicine 05/09/23 documented as of this encounter
--- OUTSIDE RECORDS SUMMARY | 2024-08-17 17:20 | XMS_ITS | Encounter Summary ---
Author Organization [email or web address] [facility] Address [address] [facility] 7t [place] [address] Care Team Providers Care Hospital Educator Name Role Phone Roxy Pollack Primary Care Provider [phone] Jerel Bhagat Unavailable Unavailable Encounter Details Date Type Department Care Team (Latest Contact Info) Description 08/23/2019 Abstract [facility] CONVERSIONS Dental, Provider, DDS Social History Tobacco [...] Description 09/14/2024 1:00 PM EDT Office Visit [facility] OPTOMETRY [address] [place] [address] Lorene Todd, OD [address] [place] [address] 09/21/2024 9:30 AM EDT Office Visit [facility] ADULT DENTAL [address] [place] [address] Nikhil Rodriguez DDS [address] [place] [address] documented as of this encounter Visit Diagnoses Not on filedocumented in this encounter Care Teams Hospital Educator Relationship Specialty Start Date End Date Roxy Pollack FNP [address] [place] [address] PCP - General Family Medicine 02/06/22 Jerel Bhagat FNP [address] [place] [address] Nurse Practitioner Family Medicine 05/09/23 documented as of this encounter
--- OUTSIDE RECORDS SUMMARY | 2024-08-17 17:20 | XMS_ITS | Encounter Summary ---
Author Organization [employer] Address [address] [facility] [address] [place] [address] Care Team Providers Care Cargo Router Name Role Phone Jourdankhalida Roxy TIN FLIPPER Primary Care Provider [phone] Jerel Bhagat Unavailable Unavailable Encounter Details Date Type Department Care Team ([facility] st Contact Info) Description 07/26/2024 Telephone C [facility] MED [facility]S [address] [place] [address] Paulina Lugo RN [address] [place] [address] Social History Tobacco Use Types Packs/Day Years [...] with others, in a hotel, in a residential, living outside on the street, on a [...] * Telephone Encounter - LETI Luna - 07/26/2024 10:08 AM EST For now she will f/u with me. Thank you. * Telephone Encounter - Paulina Lugo RN - 07/26/2024 9:58 AM EST Would you like this pt to be on PATIENT APPOINTMENT COORDINATOR or she will just f/u with you? documented in this encounter Plan of Treatment Upcoming Encounters Date Type Department Care Team (Late st Contact Info) Description 09/14/2024 1:00 PM EDT Office Visit [facility] OPTOMETRY [address] [place] [address] Lorene Todd OD [address] [place] [address] 09/21/2024 9:30 AM EDT Office Visit [facility] ADULT DENTAL [address] [place] [address] Nikhil Rodriguez DDS [address] [place] [address] documented as of this encounter Visit Diagnoses Not on filedocumented in this encounter Additional Health Concerns Assessment Noted Time PHQ-9 Depression Total Score: 2 09/13/19 24 10:45 AM EDT documented as of this encounter Care Teams Cargo Router Relationship Specialty Start Date End Date Roxy Pollack FNP [address] [place] [address] PCP - General Family Medicine 02/06/22 Jerel Bhagat FNP [address] [place] [address] Nurse Practitioner Family Medicine 05/09/23 documented as of this encounter
--- OUTSIDE RECORDS SUMMARY | 2024-08-17 17:21 | XMS_ITS | Encounter Summary ---
Author Organization [employer] [facility] Address [address] [facility] 7t [place] [address] Care Team Providers Care Feeder Loader Name Role Phone Roxy Pollack Primary Care Provider Jerel Bhagat Unavailable Unavailable Reason for Visit * Reason Comments Med Refill Encounter Details Date Type Department Care Team (Late Contact Info) Description 08/03/2022 Refill [facility] MEDICINE [address] [place] [address] Roxy Pollack FNP [address] [place] [address] Chronic pain of left knee Social History Tobacco Use Types Packs/Day [...] Encounters Date Type Department Care Team (Late Contact Info) Description 09/14/2024 1:00 PM EDT Office Visit [facility] OPTOMETRY [address] [place] [address] TarLorene aviles, OD [address] [place] [address] 09/21/2024 9:30 AM EDT Office Visit [facility] ADULT DENTAL [address] [place] [address] Nikhil Rodriguez DDS [address] [place] [address] documented as of this encounter Visit Diagnoses Diagnosis Chronic pain of left knee documented in this encounter Additional Health Concerns Assessment Noted Time PHQ-9 Depression Total Score: 1 07/01/19 23 9:58 AM EST documented as of this encounter Care Teams Feeder Loader Relationship Specialty Start Date End Date Roxy Pollack FNP [address] [place] [address] PCP - General Family Medicine 02/06/22 Jerel Bhagat FNP [address] [place] [address] Nurse Practitioner Family Medicine 05/09/23 documented as of this encounter
--- OUTSIDE RECORDS SUMMARY | 2024-08-17 17:21 | XMS_ITS | Clinical Summary ---
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 purposes. For additional information, please refer to http://Crelow/ faq/Trichomonastma (This link is being provided for information/ educational purposes only.) Pap Vial 12/09/2022 2:12 PM EDT 12/10/2022 1:04 AM EDT Jazmin Kumar [facility] CYTOLOGY ORDERABLES F inal Result [facility] [address], [place] [address] [facility] [place] [facility] [address] [place] [address] * HIV-1 RNA, Quantitative, PCR with Reflex to Genotype (12/09/2022 7:59 AM EDT) HIV 1 RNA, QN PCR Not Detected Copies/mL [facility] 1 RNA, QN PCR Not Detected Log cps/mL [facility]/N elenita [facility] Comment: Reference Range: ?Not Detected ? copies/mL ?Not Detected Log copies/mL The test was performed using Real-Time Polymerase Chain Reaction. ? Reportable Range: 20 copies/mL to 10,000,000 copies/mL (1.30 Log copies/mL to 7.00 Log copies/mL). 12/09/2022 7:59 AM EDT 12/09/2022 8:00 AM EDT us Roxy Pollack [facility] BLOOD ORDERABLES Final Res ult [facility] [address], [place] [address] [facility] [address] [place] [address] * Hepatitis C Antibody with Reflex to HCV, RNA, Quantitative, Real-Time PCR (12/09/2022 7:59 AM EDT) Pathologist [facility] Hepatitis C Antibody NON-REACT ETTA NON-REACT ETTA [facility] Comment: HCV antibody was non-reactive. There is no laboratory evidence of HCV infection. In most cases, no further action is required. However, if recent HCV exposure is suspected, a test for HCV RNA (test code 23775) is suggested. For additional information please refer to http://education.[employer].Fashiolista/faq/MKM39f8 (This link is being provided for informational/ educational purposes only.) Blood Venous blood specimen / Unknown 12/09/2022 7:59 AM EDT 12/09/2022 8:00 AM EDT us Roxy Pollack [facility] BLOOD ORDERABLES Final Res ult Performing Organization Address City/[facility]/ZIP Co de Phone Number [facility] [address], [place] [address] [facility] [place] [facility] [address] [place] [address] * Lipid Panel, Standard (12/09/2022 7:59 AM EDT) Cholesterol, Total 159 <200 mg/dL [facility] [place] [facility] HDL Cholesterol 67 > OR = 50 mg/dL [facility] [place] [facility] Triglycerides 51 <150 mg/dL [facility] [place] [facility] LDL Cholesterol 79 mg/dL (calc) [facility] [place] [facility] Comment: Reference range: <100 Desirable range <100 mg/dL for primary prevention; ?? <70 mg/dL for patients with CHD or diabetic patients with > or = 2 CHD risk factors. LDL-C is now calculated using the [place] calculation, which is a validated novel method providing better accuracy than the Friedewald equation in the estimation of LDL-C. Dipak SS et al. SYED. 2013;310(19): 6036-9782 (http://education.[employer]/faq/HQJ126) Chol/HDLC Ratio 2.4 <5.0 (calc) [facility] [place] [facility] Non-HDL Cholesterol 92 <130 mg/dL (calc) [facility] [place] [facility] Comment: For patients with diabetes plus 1 major ASCVD risk factor, treating to a non-HDL-C goal of <100 mg/dL (LDL-C of <70 mg/dL) is considered a therapeutic option. Blood Venous blood specimen / Unknown 12/09/2022 7:59 AM EDT 12/09/2022 8:00 AM EDT R[facility] LAB BLOOD ORDERABLES Final Res ult Performing Organization Address City/[facility]/ZIP Co de Phone Number ELIAS [address], [place] [address] [facility] [place] [facility] [address] [place] [address] from Last 3 Months or Most Recently Relevant to Health Maintenance Insurance [facility] C3 DENTAL-[facility] MEDICAID STAND ADULT Care Teams Mint Machine Operator Relationship Specialty Start Date End Date Roxy Pollack FNP [address] [place] [address] PCP - General Family Medicine 02/06/22 Jerel Bhagat FNP [address] [place] [address] Nurse Practitioner Family Medicine 05/09/23
--- OUTSIDE RECORDS SUMMARY | 2024-08-17 17:21 | XMS_ITS | Encounter Summary ---
Author Organization [employer] Address [address] [facility] 7t [place] [address] Care Team Providers Care Talent Acquisition Sourcer Name Role Phone Roxy Pollack Primary Care Provider [phone] Jerel Bhagat Unavailable Unavailable Encounter Details Date Type Department Care Team (Late st Contact Info) Description 08/17/2024 3:40 PM EST Office Visit [facility] WALK-IN CENTER [address] [place], [place] [phone] Sherita Cummings NP [address] [place] [address] Dog bite of left hand, initial encounter (Primary Dx); Encounter for immunization Social History Tobacco Use Types Packs/Day Years [...] with others, in a hotel, in a snf, living outside on the street, on a [...] the past 12 months, has t he [email or web address], gas, oil or water [employer] threatened to shut off services in your [...] Mass Index 39.4 08/17/2024 3:46 PM EST documented in this encounter Progress Notes * Sherita Cummings, ANESTHESIOLOGY TEACHER - 08/17/2024 3:40 PM EST Subjective: Keri Angulo is a 39 y.o. female who presents to the office for a sick visit. HPI Left hand dog bite, dog was playing and jumping for a toy, missed toy and skin above mid dorsal hand got caught and bit Does have a local vet, and will contact dog is not behaving erratically Sig pain and swelling, slight breaking of skin but no major bleeding No chance of Can move hand but movement is painful Patient Active Problem List Diagnosis Anxiety Bipolar disorder (CMS/HCC) Panic attack Osteoarthritis of left knee Healthcare maintenance Cigarette smoker Rupture of anterior cruciate ligament of right knee Long-term current use of benzodiazepine Osteoarthritis of right knee Dental calculus Gingival bleeding Periodontal disease Fractured dental congregation with loss of material Dog bite of left hand Review of Systems Constitutional: Negative for activity change and appetite change. HENT: Negative for congestion. Respiratory: Negative for apnea and chest tightness. Cardiovascular: Negative for chest pain. Genitourinary: Negative for difficulty urinating. No Known Allergies Objective: Visit Vitals BP (!) 150/87 (BP Location: Left arm, Patient Position: Sitting, BP Cuff Size: Large adult) Pulse 108 Temp 96.1 ??F (35.6 ??C) (Temporal) Resp 20 Ht 5' 10 (1.778 m) Wt 274 lb 9.6 oz (125 kg) SpO2 97% BMI 39.40 kg/m?? OB Status Having periods Smoking Status Every Day BSA 2.48 m?? Physical Exam Constitutional: Appearance: She is obese. HENT: Right Ear: Tympanic membrane normal. Left Ear: Tympanic membrane normal. Cardiovascular: Rate and Rhythm: Regular rhythm. Musculoskeletal: Left hand: Swelling, laceration, tenderness and bony tenderness present. No deformity. Decreased range of motion. Normal sensation. There is no disruption of two-point discrimination. Normal capillary refill. Normal pulse. Cervical back: Neck supple. Comments: Left midhand dorsal edema Punctate lesions visible, no exudate warmth or erythema, is able to dorsiflex hand with each fingerthough activity is painful Skin: General: Skin is dry. Findings: No erythema. Neurological: Mental Status: She is alert. Assessment/Plan: Problem List Items Addressed This Visit Dog bite of left hand - Primary Current Assessment & Plan Dog is pt pet, per pt utd [...] should go to ER Pt verbalizes understanding Relevant Medications amoxicillin-clavulanate (Augmentin) 875-125 MG tablet Other Relevant Orders XR Hand 3+ Views Left Other Visit Diagnoses Encounter for immunization Relevant Orders TDAP VACCINE 7 yrs + (Completed) Current Outpatient Medications Medication Sig Dispense Refill acetaminophen (Tylenol) 325 MG capsule Take 2 capsules (650 mg) by mouth every 8 (eight) hours if needed for moderate pain. With food. 120 capsule 0 albuterol 108 (90 Base) MCG/ACT inhaler INHALE 2 PUFFS BY MOUTH EVERY 4-6 HOURS NEEDED FOR WHEEZING OR SHORTNESS OF BREATH 18 g 1 amoxicillin-clavulanate (Augmentin) 875-125 MG tablet Take 1 tablet by mouth 2 times daily for 7 days. 14 tablet 0 chlorhexidine (Peridex) 0.12 % solution Please use 15 ml solution orally to swish for 30 seconds every night before bed. Spit, do not rinse. (Patient not taking: Reported on 07/25/2024) 120 mL 0 clonazePAM (KlonoPIN) 0.5 MG tablet Take 1 tablet (0.5 mg) by mouth 1 (one) time if needed for anxiety for up to 12 days. Take at noon. 12 tablet 0 clonazePAM (KlonoPIN) 1 MG tablet Take 1 tablet (1 mg) by mouth if needed in the morning and at bedtime for anxiety for up to 12 days. 24 tablet 0 Dextromethorphan-guaiFENesin (Mucinex DM) 30-600 MG tablet sustained-release 12 hour Use 1 tab TID 28 tablet 0 Diclofenac Sodium 1 % gel APPLY A THIN LAYER TOPICALLY TO AFFECTED AREA(S) THREE TIMES DAILY NEEDED FOR PAIN 50 g 3 hydrOXYzine pamoate (Vistaril) 50 MG capsule Take 1 capsule (50 mg) by mouth if needed in the morning, at noon, and at bedtime for anxiety. 90 capsule 0 lidocaine (Lidoderm) 5 % patch Apply 1 patch topically if needed each day (pain). Remove & discard patch within 12 hours or as directed by MD. 30 patch 2 loratadine (Claritin) 10 MG [...] BY MOUTH ONCE DAILY 90 tablet 1 No current facility-administered medications for this visit. Visit Conducted in: Malian Translation by: Provided by [facility] staff member José Waldron , documented in this encounter Miscellaneous Notes * Assessment & Plan Note - Sherita Cummings NP - 08/17/2024 4:26 PM ESTAssociated Problem(s): Dog bite of left hand Dog is pt pet, per pt utd [...] should go to ER Pt verbalizes understanding documented in this encounter Plan of Treatment Upcoming Encounters Date Type Department Care Team (Late st Contact Info) Description 09/14/2024 1:00 PM EDT Office Visit [facility] OPTOMETRY [address] [place], [place] [phone] Lorene Todd, OD [address] [place] [address] 09/21/2024 9:30 AM EDT Office Visit [facility] ADULT DENTAL [address] [place] [address] Nikhil Rodriguez DDS [address] [place] [address] Scheduled Orders Name Type Priority Associated Diagnoses Orde r Schedule XR Hand 3+ Views Left Imaging Routine Dog bite of left hand, initial encounter Expected: 08/17/2024, Expires: 08/17/2025 documented as of this encounter Visit Diagnoses Diagnosis Dog bite of left hand, initial encounter- Primary Encounter for immunization documented in this encounter Additional Health Concerns Assessment Noted Time PHQ-9 Depression Total Score: 2 09/13/19 24 10:45 AM EDT documented as of this encounter Care Teams Talent Acquisition Sourcer Relationship Specialty Start Date End Date Roxy Pollack FNP [address] [place] [address] PCP - General Family Medicine 02/06/22 Jerel Bhagat FNP [address] [place] [address] Nurse Practitioner Family Medicine 05/09/23 documented as of this encounter
--- OUTSIDE RECORDS SUMMARY | 2024-08-17 17:21 | XMS_ITS | Encounter Summary ---
Author Organization [employer] Address [address] [facility] 7t [place] [address] Care Team Providers Care Hand Tool Lapper Name Role Phone Roxy Pollack Primary Care Provider [phone] Jerel Bhagat Unavailable Unavailable Reason for Visit * Reason Onset Date Comments triage 08/09/2022 Encounter Details Date Type Department Care Team ([facility] st Contact Info) Description 08/09/2022 Telephone [facility] MEDICINE [address] [place] [address] Roxy Pollack FNP [address] [place] [address] triage Social History Tobacco Use Types Packs/Day Years [...] Telephone Encounter - Asia Alves RN - 08/09/2022 1:24 PM EST Spoke with PCP regarding pt's request for Tramadol refill. Reviewed pt's appointment history, UTOX screenings Hx with PCP. Per PCP: Pt to continue to schedule/attend Q2 week WILDLIFE ECOLOGIST RN appt. Pt to schedule/attend a TP appointment with PCP. At this time, pt will only be eligible to receive Tramadol refill after completing her WILDLIFE ECOLOGIST appt. If she misses a WILDLIFE ECOLOGIST appt, she must call to reschedule, which may delay her Tramadol refill. TC via P/I#[id number], no answer. Unable to leave voicemail. Attempted to call X2, same response. * Telephone Encounter - Roxie Carney RN - 08/09/2022 10:36 AM EST Call to Keri Angulo, reports having left sided knee pain that is chronic. Per pt needs to have refill of Tramdol. Pt advsied that pt needs to have WILDLIFE ECOLOGIST appt prior to PCP prescribing again. Pt advsied that if having severe pain can seek [facility] for evluation. Will send to WILDLIFE ECOLOGIST nurse to r/s missed WILDLIFE ECOLOGIST appt. Per pt was out of town in [place] and just arrived yesterday. PT advised of [facility] operating hours. Protocol Used: Knee Pain (Adult) Protocol-Based Disposition: See in Office or Video Visit within 2 Weeks Video visit offer not recorded Positive Triage Question: * Knee pain is a chronic symptom (recurrent or ongoing AND lasting > 4 weeks) * All higher-acuity triage questions were negative Care Advice Discussed: * Pain Medicines * Reasons To Call Back - Signs of infection occur (e.g., spreading redness, warmth, fever) - You become worse * Telephone Encounter - Blake Matute - 08/09/2022 10:22 AM EST Symptoms: Knee Pain - Not From Injury, Pain - Severe Outcome: Talk to a nurse or provider within 15 minutes Reason: Can't walk The caller accepted this outcome speaks croatian documented in this encounter Plan of Treatment Upcoming Encounters Date Type Department Care Team (Late st Contact Info) Description 09/14/2024 1:00 PM EDT Office Visit [facility] OPTOMETRY [address] [place] [phone] Lorene Todd, OD [address] [place] [address] 09/21/2024 9:30 AM EDT Office Visit [facility] ADULT DENTAL [address] [place] [address] Nikhil Rodriguez, TOROS [address] [place] [address] documented as of this encounter Visit Diagnoses Not on filedocumented in this encounter Additional Health Concerns Assessment Noted Time PHQ-9 Depression Total Score: 1 07/01/19 23 9:58 AM EST documented as of this encounter Care Teams Hand Tool Lapper Relationship Specialty Start Date End Date Roxy Pollack FNP [address] [place] [address] PCP - General Family Medicine 02/06/22 Jerel Bhagat FNP [address] [place] [address] Nurse Practitioner Family Medicine 05/09/23 documented as of this encounter
--- OUTSIDE RECORDS SUMMARY | 2024-08-17 17:21 | XMS_ITS | Encounter Summary ---
Author Organization [employer] Address [address] [facility] 7t [place] [address] Care Team Providers Care Organisation And Methods Analyst Name Role Phone Roxy Pollack Primary Care Provider [phone] Jerel Bhagat Unavailable Unavailable Reason for Visit * Reason Comments Med Refill Encounter Details Date Type Department Care Team ([facility] st Contact Info) Description 03/21/2024 Refill [facility] MEDICINE [address] [place] [address] Jerel Bhagat FNP Anxiety Social History Tobacco [...] with others, in a hotel, in a chcf, living outside on the street, on a [...] Description 09/14/2024 1:00 PM EDT Office Visit [facility] OPTOMETRY [address] [place] [address] Lorene Todd, OD [address] [place] [address] 09/21/2024 9:30 AM EDT Office Visit [facility] ADULT DENTAL [address] [place] [address] Nikhil Rodriguez DDS [address] [place] [address] documented as of this encounter Visit Diagnoses Diagnosis Anxiety Anxiety state, unspecified documented in this encounter Additional Health Concerns Assessment Noted Time PHQ-9 Depression Total Score: 2 09/13/19 24 10:45 AM EDT documented as of this encounter Care Teams Organisation And Methods Analyst Relationship Specialty Start Date End Date Roxy Pollack FNP [address] [place] [address] PCP - General Family Medicine 02/06/22 Jerel Bhagat FNP [address] [place] [address] Nurse Practitioner Family Medicine 05/09/23 documented as of this encounter
--- OUTSIDE RECORDS SUMMARY | 2024-08-17 17:21 | XMS_ITS | Encounter Summary ---
Author Organization [employer] Address [address] [facility] 7 [place] [address] Care Team Providers Care Chief Orthoptist Name Role Phone Roxy Pollack Primary Care Provider Jerel Bhagat Unavailable Unavailable Reason for Visit * Reason Onset Date Comments follow up needed 03/15/2024 Encounter Details Date Type Department Care Team ([facility] Contact Info) Description 03/15/2024 Telephone [facility] MEDICINE [address] [place] [address] Roxy Pollack FNP [address] [place] [address] follow up needed Social History Tobacco Use Types Packs/Day Years [...] with others, in a hotel, in a longterm, living outside on the street, on a [...] the past 12 months, has t he [employer], gas, oil or water company threatened to [...] encounter Miscellaneous Notes * Telephone Encounter - Bridger Gonzalez - 03/15/2024 11:25 AM EDT TC from pt states SSI sent over forms to be filled out . Due date is the end of this month . PT states Jerel dee would normal fill this out for her but because she retired / PCP is currently filling her scripts and has not found a psychiatrist documented in this encounter Plan of Treatment Upcoming Encounters Date Type Department Care Team (Late st Contact Info) Description 09/14/2024 1:00 PM EDT Office Visit [facility] OPTOMETRY [address] [place] [address] Lorene Todd, OD [address] [place] [address] 09/21/2024 9:30 AM EDT Office Visit [facility] ADULT DENTAL [address] [place] [address] Nikhil Rodriguez DDS [address] [place] [address] documented as of this encounter Visit Diagnoses Not on filedocumented in this encounter Additional Health Concerns Assessment Noted Time PHQ-9 Depression Total Score: 2 09/13/19 24 10:45 AM EDT documented as of this encounter Care Teams Chief Orthoptist Relationship Specialty Start Date End Date Roxy Pollack FNP [address] [place] [address] PCP - General Family Medicine 02/06/22 Jerel Bhagat FNP [address] [place] [address] Nurse Practitioner Family Medicine 05/09/23 documented as of this encounter
--- OUTSIDE RECORDS SUMMARY | 2024-08-17 17:21 | XMS_ITS | Encounter Summary ---
Author Organization [employer] Address [address] [facility] 7t [place] [address] Care Team Providers Care Dough Panner Name Role Phone Roxy Pollack Primary Care Provider [phone] Jerel Bhagat Unavailable Unavailable Reason for Visit * Reason Comments Med Refill Encounter Details Date Type Department Care Team (Late Contact Info) Description 03/04/2023 Refill [facility] MEDICINE [address] [place] [address] Roxy Pollack FNP [address] [place] [address] Social History Tobacco Use Types Packs/Day Years Used Date Smoking Tobacco: Every Day Cigarettes Passive Smoke Exposure: Current Smokeless Tobacco: Never Alcohol Use Standard Drinks/Week Comments Yes 3 (1 standard drink = 0.6 oz pur e alcohol) ETOH use 'socially' Comments No Sex and Gender Information Value [...] 1:00 PM EDT Office Visit [facility] OPTOMETRY [address] [place] [address] Lorene Todd, OD [address] [place] [address] 09/21/2024 9:30 AM EDT Office Visit [facility] ADULT DENTAL [address] [place] [address] Nikhil Rodriguez DDS [address] [place] [address] documented as of this encounter Visit Diagnoses Not on filedocumented in this encounter Additional Health Concerns Assessment Noted Time PHQ-9 Depression Total Score: 0 12/17/19 10:47 AM EDT documented as of this encounter Care Teams Dough Panner Relationship Specialty Start Date End Date Roxy Pollack FNP [address] [place] [address] PCP - General Family Medicine 02/06/22 Jerel Bhagat FNP [address] [place] [address] Nurse Practitioner Family Medicine 05/09/23 documented as of this encounter
== END 2024-08-17 15:59 | disposition home or self-care (01) ==
LOC: HO.HHCX 15:58
PROVIDERS: Visit Provider Nurse Practitioner Family
DX: S61.452A Open bite of left hand, initial encounter (principal); W54.0XXA Bitten by dog, initial encounter
CPT/HCPCS: 73130

== ENCOUNTER → 2024-08-17 15:59 | Outpatient (BNV) | payer MEDICAID, SELFPAY | PROVIDERS: Visit Provider Radiology Diagnostic Radiology | DX: M79.642 Pain in left hand (principal) | CPT/HCPCS: 73130 ==

== ENCOUNTER 2025-02-13 14:44 | Outpatient (REF) | payer MEDICAID, SELFPAY ==
--- OUTSIDE RECORDS SUMMARY | 2025-02-14 15:00 | XMS_ITS | Encounter Summary ---
Author Organization [employer] Address [address] [place] [address] 7 [place] [address] Care Team Providers Care Play Reader Name Role Phone JourdanRoxy gaxiola MAGALI Primary Care Provider [phone] Jerel Bhagat Unavailable Unavailable Reason for Visit * Reason Comments Dental Pain Encounter Details Date Type Department Care Team ([facility] st Contact Info) Description 02/14/2025 3:00 PM EDT Office Visit [facility] ADULT DENTAL [address] [place] [address] Nikhil Rodriguez DDS [address] [place] [address] Pain, dental (Primary Dx); Fractured dental temple with loss of material Social History Tobacco Use Types Packs/Day Years [...] with others, in a hotel, in a long term, living outside on the street, on a [...] the past 12 months, has t he [employer], gas, oil or water [employer] threatened to shut off services in your [...] Sign Reading Time Taken Comments Blood Pressure 126/74 02/14/2025 2:31 PM EDT Pulse 68 02/14/2025 2:31 PM EDT Temperature - - Respiratory Rate - - Oxygen Saturation - - Inhaled Oxygen Concentration - - Weight - - Height - - Body Mass Index - - documented in this encounter Progress Notes * Nikhil Rodriguez DDS - 02/14/2025 3:00 PM EDT Dental procedures in this visit D0140 - LIMITED ORAL EVALUATION - PROBLEM FOCUSED D0220 - INTRAORAL - PERIAPICAL FIRST RADIOGRAPHIC IMAGE D9450 - CASE PRESENTATION, DETAILED AND EXTENSIVE TREATMENT PLANNING Patient ID: Keri Angulo is a 39 y.o. female. Time Out: Timeout Date: 02/14/25, Timeout Time: 1428 (1 pa taken on tooth#8 , 9) Location: [facility] Tooth: Maxilla, #8, and #9 Procedure: X-rays and Emergency Verified the above with patient, loan officer assistant, and provider. Confirmed via patient's chart, intraorally and by radiographs. Pulmonary Function Technician: not applicable Chief Complaint Patient presents with Dental Pain Medical Hx: Vitals: Blood pressure 126/74, pulse 68. Medical History[1] Medications: Encounter Medications[2] Subjective: Pain: intermittent, mild Duration: >5 days Objective: Tooth: #8 and #9 Radiographs Taken: PA(s) Radiographic Findings: Periapical Radiolucency Clinical Findings: Pending filling / BRAYDEN . Pt. Wanting priority to anterior centrals Swelling: Tenderness Endo Testing: no Perio: BRAYDEN Other Findings: Pt is having piercing Diagnosis: Symptomatic irreversible pulpitis Assessment/Plan: EOE X ray RCT & C referral Prescriptions: Sent to [facility] on file Pt tolerated procedure well, all questions answered. Dismissed in good condition. NV: Referred to Dr. Ramirez Clinical Operations Consultant: Georgiana Ewing Dentist: Nikhil Rodriguez DDS [1] Past Medical History: Diagnosis Date Anxiety Arthritis Asthma Depression [2] Outpatient Encounter Medications as of 02/14/2025 Medication Sig Dispense Refill clonazePAM (KlonoPIN) 1 MG tablet Take 1 tablet (1 mg) by mouth if needed in the morning and at bedtime for anxiety for up to 28 days. 56 tablet 0 Dextromethorphan-guaiFENesin (Mucinex DM) 30-600 MG tablet sustained-release 12 hour Use 1 tab TID 28 tablet 0 Diclofenac Sodium 1 % gel APPLY A THIN LAYER TOPICALLY TO AFFECTED AREA(S) THREE TIMES DAILY NEEDED FOR PAIN 50 g 3 hydrOXYzine pamoate (Vistaril) 50 MG capsule TAKE 1 CAPSULE BY MOUTH THREE TIMES DAILY IN THE MORNING, AT NOON, AND AT BEDTIME NEEDED FOR ANXIETY 90 capsule 1 lidocaine (Lidoderm) 5 % patch APPLY 1 PATCH TOPICALLY TO SKIN, LEAVE ON FOR 12 HOURS AND OFF FOR 12 HOURS DIRECTED FOR PAIN 30 patch 2 loratadine (Claritin) 10 MG tablet TAKE 1 TABLET BY MOUTH EVERY DAY 90 tablet 0 nabumetone (Relafen) 500 MG tablet TAKE 1 TABLET BY MOUTH IN THE MORNING AND AT BEDTIME NEEDED FOR KNEE PAIN 60 tablet 3 naloxone (Narcan) 4 mg/0.1 [...] tablet 0 traZODone (Desyrel) 100 MG tablet TAKE 1 TABLET BY MOUTH AT BEDTIME 30 tablet 1 valACYclovir (Valtrex) 500 MG tablet TAKE 1 TABLET BY MOUTH EVERY DAY 90 tablet 1 acetaminophen (Tylenol) 325 MG capsule Take 2 capsules (650 mg) by mouth every 8 (eight) hours if needed for moderate pain. With food. (Patient not taking: Reported on 02/14/2025) 120 capsule 0 albuterol (Ventolin HFA) 108 (90 Base) MCG/ACT inhaler INHALE 2 PUFFS BY MOUTH EVERY 4 TO 6 HOURS NEEDED FOR WHEEZING OR SHORTNESS OF BREATH (Patient not taking: Reported on 02/14/2025) 18 g 3 chlorhexidine (Peridex) 0.12 % solution Please use 15 ml solution orally to swish for 30 seconds every night before bed. Spit, do not rinse. (Patient not taking: Reported on 02/14/2025) 120 mL 0 sertraline (Zoloft) 100 MG tablet Take 1 tablet (100 mg) by mouth in the morning. (Patient not taking: Reported on 02/14/2025) 30 tablet 1 No facility-administered encounter medications on file as of 02/14/2025. documented in this encounter Plan of Treatment Upcoming Encounters Date Type Department Care Team (Late st Contact Info) Description 03/04/2025 11:00 AM EDT Office Visit [facility] ADULT DENTAL [address] [place] [address] Nikhil Rodriguez DDS [address] [place] [address] 03/12/2025 9:30 AM EDT Office Visit [facility] ADULT DENTAL [address] [place] [address] Dawson-Ramirez, Johanna, DDS [address] [place] [address] 03/15/2025 9:30 AM EDT Office Visit [facility] MED & PEDS [address] [place] [address] Roxy Pollack FNP [address] [place] [address] Scheduled Orders Name Type Priority Associated Diagnoses Orde r Schedule 9 9 ENDODONTIC THERAPY, ANTERIOR TOOTH Dental Routine [address] arting 02/14/2025 8 8 ENDODONTIC THERAPY, ANTERIOR TOOTH Dental Routine [address] arting 02/14/2025 documented as of this encounter Procedures Procedure Name Priority Date/Time Associated Diagnosis Comments LIMITED ORAL EVALUATION - PROBLEM FOCUSED Routine 02/14/2025 3:00 PM EDT INTRAORAL - PERIAPICAL FIRST RADIOGRAPHIC IMAGE Routine 02/14/2025 3:00 PM EDT CASE PRESENTATION, DETAILED AND EXTENSIVE TREATMENT PLANNING Routine 02/14/2025 3:00 PM EDT documented in this encounter Visit Diagnoses Diagnosis Pain, dental- Primary Fractured dental temple with loss of material Fractured dental restorative material with loss of material documented in this encounter Additional Health Concerns Assessment Noted Time PHQ-9 Depression Total Score: 2 09/13/19 24 10:45 AM EDT documented as of this encounter Care Teams Play Reader Relationship Specialty Start Date End Date Roxy Pollack FNP [address] [place] [address] PCP - General Family Medicine 02/06/22 Jerel Bhagat FNP [address] [place] [address] Nurse Practitioner Family Medicine 05/09/23 documented as of this encounter
--- OUTSIDE RECORDS SUMMARY | 2025-02-14 15:56 | XMS_ITS | Patient Health Record ---
Author Organization [facility] (formerly [facility]) Address [facility] [place] [address] Care Team Providers Care Generating Plant Superintendent Name Role Phone GLENDA SWEENEY Primary Care Provider Reason For Referral No Information Social History Social History COVID-19 Social Info Question Answer Notes [place] COVID-19 Mckeon viajado fuera de MD o mckeon estado en contacto con alguien que haya estado fuera de MD en los pasados 14 laughlin Yes [place]ina Mckeon participado de eventos pu blicos, sociales o familiares en los ultimos 14 laughlin Yes Richard de Emergencia Social Info Question Answer Notes Historial Social Vivienda Con estefanía Sospecha de maltrato, violencia, u abuso sexual? No Viaje No viajo fuera de P.[employer]. Inmunizacion al mariella Si Inmunizacion contra el tetano No Transfuciones componentes sanguineos No Declina ser transfundido Si Modo de llegada Ambulando Acompanado pro Nadie Plan Of Treatment No Information
--- OUTSIDE RECORDS SUMMARY | 2025-02-14 15:56 | XMS_ITS | Encounter Summary ---
Author Organization [employer] Address [address] [facility] 7t [place] [address] Care Team Providers Care Brand Director Name Role Phone Roxy Pollack PRESSURE WELDER Primary Care Provider [phone] Jerel Bhagat Unavailable Unavailable Encounter Details Date Type Department Care Team (Latest Contact Info) Description 10/07/2020 Abstract [facility] CONVERSIONS Dental, Provider, DDS Social History [...] Description 03/04/2025 11:00 AM EDT Office Visit [facility] ADULT DENTAL [address] [place] [address] Nikhil Rodriguez, DDS [address] [place] [address] 03/12/2025 9:30 AM EDT Office Visit [facility] ADULT DENTAL [address] [place] [address] Johanna Walker, DDS [address] [place] [address] 03/15/2025 9:30 AM EDT Office Visit [facility] MED & PEDS [address] [place] [address] Roxy Pollack FNP [address] [place] [address] documented as of this encounter Visit Diagnoses Not on filedocumented in this encounter Care Teams Brand Director Relationship Specialty Start Date End Date Roxy Pollack FNP [address] [place] [address] PCP - General Family Medicine 02/06/22 Jerel Bhagat FNP [address] [place] [address] Nurse Practitioner Family Medicine 05/09/23 documented as of this encounter
--- OUTSIDE RECORDS SUMMARY | 2025-02-14 15:56 | XMS_ITS | Encounter Summary ---
Author Organization [employer] Address [address] [facility] 7t [place] [address] Care Team Providers Care Supervisor Of Operations Name Role Phone Roxy Pollack CUSTOM DRESSMAKER Primary Care Provider [phone] Jerel Bhagat Unavailable Unavailable Encounter Details Date Type Department Care Team (Latest Contact Info) Description 08/23/2019 Abstract [facility] CONVERSIONS Dental, Provider, DDS Social History Tobacco [...] Upcoming Encounters Date Type Department Care Team ( st Contact Info) Description 03/04/2025 11:00 AM EDT Office Visit [facility] ADULT DENTAL [address] [place] [address] Nikhil Rodriguez, DDS [address] [place] [address] 03/12/2025 9:30 AM EDT Office Visit [facility] ADULT DENTAL [address] [place] [address] Johanna Walker, DDS [address] [place] [address] 03/15/2025 9:30 AM EDT Office Visit [facility] CHC MED & PEDS [address] [place] [address] Roxy Pollack FNP [address] [place] [address] documented as of this encounter Visit Diagnoses Not on filedocumented in this encounter Care Teams Supervisor Of Operations Relationship Specialty Start Date End Date Roxy Pollack FNP [address] [place] [address] PCP - General Family Medicine 02/06/22 Jerel Bhagat FNP [address] [place] [address] Nurse Practitioner Family Medicine 05/09/23 documented as of this encounter
--- OUTSIDE RECORDS SUMMARY | 2025-02-14 15:57 | XMS_ITS | Encounter Summary ---
Author Organization [employer] Address [address] [place] [address] 7 [place] [address] Care Team Providers Care Manager Practice Name Role Phone Roxy Pollack Primary Care Provider [phone] Jerel Bhagat Unavailable Unavailable Reason for Visit * Reason Comments Med Refill Encounter Details Date Type Department Care Team ([facility] Contact Info) Description 01/27/2025 Refill [facility]C MED & PEDS [address] [place], [place] [id number] Roxy Pollack FNP [address] [place] [address] Bipolar affective disorder, remission status unspecified ([facility] Social History Tobacco Use Types Packs/Day Years [...] the past 12 months, has t he [employer], gas, oil or water [employer] threatened to shut off services in your [...] encounter Miscellaneous Notes * Telephone Encounter - MAGALI Posey - 01/28/2025 12:34 PM EDT Sent in med refills for psych meds previously rx by Omar Momin APRN. Luis Fernando Aly - I see that Cee was able to reach pt and discussed referral process for psych services. Do you know if there is a status update on when she is going to be seen by psych prescriber? I sent in enough refill x 2 months. Thanks! * Telephone Encounter - Oumou Corcoran LPN - 01/28/2025 10:43 AM EDT Last seen 08/17/24. documented in this encounter Plan of Treatment Upcoming Encounters Date Type Department Care Team (Late st Contact Info) Description 03/04/2025 11:00 AM EDT Office Visit [facility] ADULT DENTAL [address] [place] [address] Nikhil Rodriguez, DDS [address] [place] [address] 03/12/2025 9:30 AM EDT Office Visit [facility] ADULT DENTAL [address] [place] [address] Dawson-Ramirez, Johanna, DDS [address] [place] [address] 03/15/2025 9:30 AM EDT Office Visit [facility] CHC MED & PEDS [address] [place] [address] Roxy Pollack FNP [address] [place] [address] documented as of this encounter Visit Diagnoses Diagnosis Bipolar affective disorder, remission status unspecified ([facility]) documented in this encounter Additional Health Concerns Assessment Noted Time PHQ-9 Depression Total Score: 2 09/13/19 24 10:45 AM EDT documented as of this encounter Care Teams Manager Practice Relationship Specialty Start Date End Date Roxy Pollack FNP [address] [place] [address] PCP - General Family Medicine 02/06/22 Jerel Bhagat FNP [address] [place] [address] Nurse Practitioner Family Medicine 05/09/23 documented as of this encounter
--- OUTSIDE RECORDS SUMMARY | 2025-02-14 15:57 | XMS_ITS | Encounter Summary ---
Author Organization [employer] Address [address] [facility] 7t [place] [address] Care Team Providers Care Supervisor Industrial Garment Name Role Phone Roxy Pollack Primary Care Provider [phone] Jerel Bhagat Unavailable Unavailable Reason for Visit * Reason Comments Med Refill Encounter Details Date Type Department Care Team ([facility] st Contact Info) Description 03/21/2024 Refill [facility] MEDICINE [address] [place] [address] Jerel Bhagat FNP Anxiety Social History Tobacco [...] with others, in a hotel, in a [facility], living outside on the street, on a [...] Description 03/04/2025 11:00 AM EDT Office Visit [facility] ADULT DENTAL [address] [place] [address] Nikhil Rodriguez, S [address] [place] [address] 03/12/2025 9:30 AM EDT Office Visit [facility] ADULT DENTAL [address] [place] [address] Johanna Walker, DDS [address] [place] [address] 03/15/2025 9:30 AM EDT Office Visit [facility] CHC MED & PEDS [address] [place] [address] Roxy Pollack FNP [address] [place] [address] documented as of this encounter Visit Diagnoses Diagnosis Anxiety Anxiety state, unspecified documented in this encounter Additional Health Concerns Assessment Noted Time PHQ-9 Depression Total Score: 2 09/13/19 24 10:45 AM EDT documented as of this encounter Care Teams Supervisor Industrial [employer] Relationship Specialty Start Date End Date Roxy Pollack FNP [address] [place] [address] PCP - General Family Medicine 02/06/22 Jerel Bhagat FNP [address] [place] [address] Nurse Practitioner Family Medicine 05/09/23 documented as of this encounter
--- OUTSIDE RECORDS SUMMARY | 2025-02-14 15:57 | XMS_ITS | Encounter Summary ---
Author Organization [employer] Address [address] [facility] [address] [place] [address] Care Team Providers Care Batch Freezer Name Role Phone Roxy Pollack Primary Care Provider [phone] Jerel Bhagat Unavailable Unavailable Reason for Visit * Reason Comments Med Refill Encounter Details Date Type Department Care Team (Late Contact Info) Description 03/04/2023 Refill [facility] MEDICINE [address] [place] [address] Roxy Pollack FNP [address] [place] [address] Social History Tobacco Use Types Packs/Day Years [...] Description 03/04/2025 11:00 AM EDT Office Visit [facility] ADULT DENTAL [address] [place] [address] Nikhil Rodriguez DDS [address] [place] [address] 03/12/2025 9:30 AM EDT Office Visit [facility] ADULT DENTAL [address] [place] [address] Samir-Johanna Ramirez, DDS [address] [place] [address] 03/15/2025 9:30 AM EDT Office Visit [facility] CHC MED & PEDS [address] [place] [address] Roxy Pollack FNP [address] [place], [place] documented as of this encounter Visit Diagnoses Not on filedocumented in this encounter Additional Health Concerns Assessment Noted Time PHQ-9 Depression Total Score: 0 12/17/19 23 10:47 AM EDT documented as of this encounter Care Teams Batch Freezer Relationship Specialty Start Date End Date Roxy Pollack FNP [address] [place], [place] PCP - General Family Medicine 02/06/22 Jerel Bhagat FNP [address] [place] [address] Nurse Practitioner Family Medicine 05/09/23 documented as of this encounter
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
--- OUTSIDE RECORDS SUMMARY | 2025-02-14 15:57 | XMS_ITS | Encounter Summary ---
Author Organization [employer] Address [address] [facility] 7t [place] [address] Care Team Providers Care Protective Signal Installer Name Role Phone Roxy Pollack Primary Care Provider [phone] Jerel Bhagat Unavailable Unavailable Reason for Visit * Reason Comments Med Refill Encounter Details Date Type Department Care Team ([facility] st Contact Info) Description 06/23/2022 Refill [facility] MEDICINE [address] [place] [address] Jerel Bhagat FNP Anxiety Social History Tobacco [...] RN - 06/24/2022 8:17 AM EST Has SALES TEAM RECRUITER RV appt today. Will review medication refill request at that time and forward to PCP. documented in this encounter Plan of Treatment Upcoming Encounters Date Type Department Care Team (Late st Contact Info) Description 03/04/2025 11:00 AM EDT Office Visit [facility] ADULT DENTAL [address] [place] [address] PanchoNikhil piedra, DDS [address] [place] [address] 03/12/2025 9:30 AM EDT Office Visit [facility] ADULT DENTAL [address] [place] [address] Dawson-Johanna Ramirez, DDS [address] [place] [address] 03/15/2025 9:30 AM EDT Office Visit [facility] CHC MED & PEDS [address] [place] [address] Roxy Pollack FNP [address] [place] [address] documented as of this encounter Visit Diagnoses Diagnosis Anxiety Anxiety state, unspecified documented in this encounter Care Teams Protective Signal Installer Relationship Specialty Start Date End Date Roxy Pollack FNP [address] [place] [address] PCP - General Family Medicine 02/06/22 Jerel Bhagat FNP [address] [place] [address] Nurse Practitioner Family Medicine 05/09/23 documented as of this encounter
--- OUTSIDE RECORDS SUMMARY | 2025-02-14 15:57 | XMS_ITS | Encounter Summary ---
Author Organization [employer] Address [address] [place] [address] 7 [place] [address] Care Team Providers Care Glazing Department Supervisor Name Role Phone Roxy Pollack Primary Care Provider [phone] Jerel Bhagat Unavailable Unavailable Reason for Visit * Reason Comments Med Refill Encounter Details Date Type Department Care Team ([facility] Contact Info) Description 02/14/2025 Refill [facility] MED & PEDS [address] [place] [address] Roxy Pollack FNP [address] [place] [address] Anxiety Social History Tobacco Use Types Packs/Day [...] with others, in a hotel, in a senior living, living outside on the street, on a [...] Description 03/04/2025 11:00 AM EDT Office Visit [facility] ADULT DENTAL [address] [place] [address] Nikhil Rodriguez, DDS [address] [place] [address] 03/12/2025 9:30 AM EDT Office Visit [facility] ADULT DENTAL [address] [place] [address] Johanna Walker, DDS [address] [place] [address] 03/15/2025 9:30 AM EDT Office Visit [facility] MED & PEDS [address] [place], [place] [phone] Roxy Pollack FNP [address] [place] [address] documented as of this encounter Visit Diagnoses Diagnosis Anxiety Anxiety state, unspecified documented in this encounter Additional Health Concerns Assessment Noted Time PHQ-9 Depression Total Score: 2 09/13/19 24 10:45 AM EDT documented as of this encounter Care Teams Glazing Department Supervisor Relationship Specialty Start Date End Date Roxy Pollack FNP [address] [place] [address] PCP - General Family Medicine 02/06/22 Jerel Bhagat FNP [address] [place] [address] Nurse Practitioner Family Medicine 05/09/23 documented as of this encounter
--- OUTSIDE RECORDS SUMMARY | 2025-02-14 15:57 | XMS_ITS | Encounter Summary ---
Author Organization [employer] Address [address] [facility] 7t [place] [address] Care Team Providers Care Punch Operator Name Role Phone Roxy Pollack Primary Care Provider [phone] Jerel Bhagat Unavailable Unavailable Reason for Visit * Reason Onset Date Comments triage 08/09/2022 Encounter Details Date Type Department Care Team ([facility] Contact Info) Description 08/09/2022 Telephone [facility] MEDICINE [address] [place] [address] Roxy Pollack FNP [address] [place] [address] triage Social History Tobacco Use Types Packs/Day [...] Pt to continue to schedule/attend Q2 week MOP MAKER RN appt. Pt to schedule/attend a TP appointment with PCP. At this time, pt will only be eligible to receive Tramadol refill after completing her MOP MAKER appt. If she misses a MOP MAKER appt, she must call to reschedule, which may delay her Tramadol refill. TC via P/I#[id number], no answer. Unable to leave voicemail. Attempted to call X2, same response. * Telephone Encounter - Roxie Carney RN - 08/09/2022 10:36 AM EST Call to Keri Angulo, reports having left sided knee pain that is chronic. Per pt needs to have refill of Tramdol. Pt advsied that pt needs to have MOP MAKER appt prior to PCP prescribing again. Pt advsied that if having severe pain can seek [facility] for evluation. Will send to MOP MAKER nurse to r/s missed MOP MAKER appt. Per pt was out of town in [place] and just arrived yesterday. PT advised of [facility] operating hours. Protocol Used: Knee Pain [...] walk The caller accepted this outcome speaks irish documented in this encounter Plan of Treatment Upcoming Encounters Date Type Department Care Team (Late st Contact Info) Description 03/04/2025 11:00 AM EDT Office Visit [facility] ADULT DENTAL [address] [place] [address] Nikhil Rodriguez DDS [address] [place] [address] 03/12/2025 9:30 AM EDT Office Visit [facility] ADULT DENTAL [address] [place] [address] Dawson-Ramirez, Johanna, DDS [address] [place] [address] 03/15/2025 9:30 AM EDT Office Visit [facility] CHC MED & PEDS [address] [place] [address] Roxy Pollack FNP [address] [place] [address] documented as of this encounter Visit Diagnoses Not on filedocumented in this encounter Additional Health Concerns Assessment Noted Time PHQ-9 Depression Total Score: 1 07/01/19 23 9:58 AM EST documented as of this encounter Care Teams Punch Operator Relationship Specialty Start Date End Date Roxy Pollack FNP [address] [place] [address] PCP - General Family Medicine 02/06/22 Jerel Bhagat FNP [address] [place] [address] Nurse Practitioner Family Medicine 05/09/23 documented as of this encounter
--- OUTSIDE RECORDS SUMMARY | 2025-02-14 15:57 | XMS_ITS | Encounter Summary ---
Author Organization [employer] Address [address] [facility] 7t [place] [address] Care Team Providers Care Director Of Speech Pathology Name Role Phone Roxy Pollack Primary Care Provider [phone] Jerel Bhagat Unavailable Unavailable Reason for Visit * Reason Comments Med Refill Encounter Details Date Type Department Care Team (Late st Contact Info) Description 08/03/2022 Refill [facility] MEDICINE [address] [place] [address] Roxy Pollack FNP [address] [place] [address] Chronic pain of left knee Social History [...] 11:00 AM EDT Office Visit [facility] ADULT DENTAL [address] [place] [address] Nikhil Rodriguez DDS [address] [place] [address] 03/12/2025 9:30 AM EDT Office Visit [facility] ADULT DENTAL [address] [place] [address] Samir-Johanna Ramirez, DDS [address] [place] [address] 03/15/2025 9:30 AM EDT Office Visit [facility] CHC MED & PEDS [address] [place] [address] Roxy Pollack FNP [address] [place] [address] documented as of this encounter Visit Diagnoses Diagnosis Chronic pain of left knee documented in this encounter Additional Health Concerns Assessment Noted Time PHQ-9 Depression Total Score: 1 07/01/19 23 9:58 AM EST documented as of this encounter Care Teams Director Of Speech Pathology Relationship Specialty Start Date End Date Roxy Pollack FNP [address] [place] [address] PCP - General Family Medicine 02/06/22 Jerel Bhagat FNP [address] [place] [address] Nurse Practitioner Family Medicine 05/09/23 documented as of this encounter
== END 2025-02-13 14:45 | disposition home or self-care (01) ==
LOC: HO.HOSX 14:44
PROVIDERS: Visit Provider Orthopaedic Surgery
DX: Z13.89 Encounter for screening for other disorder (principal)

== ENCOUNTER 2025-06-10 14:36 | Outpatient (REF) | payer MEDICAID, SELFPAY ==
--- OUTSIDE RECORDS SUMMARY | 2025-06-10 13:45 | XMS_ITS | Encounter Summary ---
Author Organization [employer] Address [address] [facility] 7 [place] [address] Care Team Providers Care Food Service Tray Attendant Name Role Phone Roxy Pollack Primary Care Provider [phone] Jerel Bhagat Unavailable Unavailable Reason for Visit * Reason Comments Knee Pain Cyst Wants antibiotics Encounter Details Date Type Department Care Team ([facility] Contact Info) Description 06/10/2025 1:45 PM EST Office Visit [facility] MED [facility] PEDS [address] [place] [address] Roxy Pollack FNP [address] [place] [address] Healthcare maintenance (Primary Dx) Social History Tobacco Use Types Packs/Day Years Used Date Smoking Tobacco: Every Day Cigarettes Passive Smoke Exposure: Current Smokeless Tobacco: Never Tobacco Cessation:Ready to Q uit: Not Asked; Counseling Given: Not Answered Alcohol Use Standard Drinks/Week Comments Yes 3 (1 standard drink = 0.6 oz pur e alcohol) ETOH use 'socially' Depression Answer Date Recorded Patient Health Questionnaire-9 Score 10 05/13/2025 Patient Health Questionnaire-9 Score 10 05/13/2025 Last PHQ-9: Questionnaire Data Not on file 1 07/14/2024 Housing Stability Answer Date Recorded What is your housing situation today? I have noe fischer 03/07/[address] you li ve. Do you have problems with any of the following? None of the above 03/07/2025 Food Insecurity Answer Date Recorded Within the past 12 months, y ou worried that your food would run out before you got money to buy more: Never True 03/07/2025 Within the past 12 months,th e food you bought just didn't last and you didn't have enough money to get more: Never True Transportation Answer Date Recorded In the past 12 months, has l ack of transportation kept you from medical appts, meetings, work or from getting things needed for daily living? Yes, it has kept me from medical appointments or getting medications. 03/07/2025 Utilities Answer Date Recorded In the past 12 months, has t he electric, gas, oil or water company threatened to shut off services in your home? No 03/07/2025 Depression Answer Date Recorded Patient Health Questionnaire-2 Score 1 05/13/2025 Internet Access Answer Date Recorded Internet Access Q1 Yes 03/07/2025 Internet Access Q2 Not on file 03/07/2025 Comments No Sex and Gender Information Value Date Recorded Sex Assigned at Female 04/12/2022 10:36 AM EDT Legal Sex Female 10:36 AM EDT Gender Identity Female 04/12/2022 10:36 AM EDT Sexual Orientation Choose not to disclose 2021 10:36 AM EDT documented as of this encounter Last Filed Vital Signs Vital Sign Reading Time Taken Comments Blood Pressure 119/74 06/10/2025 1:52 PM EST Pulse 85 06/10/2025 1:52 PM EST Temperature 36.2 C (97.1 F) 06/10/2025 1:52 PM EST Respiratory Rate 20 06/10/2025 1:52 PM EST Oxygen Saturation - - Inhaled Oxygen Concentration - - Weight 131 kg (288 lb) 06/10/2025 1:52 PM EST Height 177.8 cm (5' 10 ) 06/10/2025 1:52 PM EST Body Mass Index 41.32 06/10/2025 1:52 PM EST documented in this encounter Functional Status * SBIRT - Alcohol Question Answer Date of Assessment Author How many times in the past y ear have you had 5 or more (for men) or 4 or more (for women) drinks in a day? 0 06/10/2025 1:55 PM EST Prabha Nicole MA Score 0 06/10/2025 1:55 PM Prabha Colbert MA * SBIRT - Drugs Question Answer Date of Assessment Author How many times in the past y ear have you used an illegal drug or used a prescription medication for non-medical reasons? 0 06/10/2025 1:55 PM Prabha Colbert MA Score 0 06/10/2025 1:55 PM Prabha Colbert MA documented as of this encounter Plan of Treatment Upcoming Encounters Date Type Department Care Team (Late st Contact Info) Description 06/24/2025 3:00 PM EST Office Visit [facility] ADULT DENTAL [address] [place] [address] Everette, Nalini [address] [place] [address] 07/04/2025 11:00 AM EST Office Visit [facility] ADULT DENTAL [address] [place] [address] Everette, [facility] [address] [place] [address] 09/04/2025 3:30 PM EDT Office Visit [facility] OPTOMETRY [address] [place] [address] Tarka, Lorene, OD [address] [place] [address] 09/09/2025 2:30 PM EDT Office Visit [facility] CHC MED & PEDS [address] [place] [address] PhalenRoxy, STRIP POLISHER [address] [place] [address] Scheduled Orders Name Type Priority Associated Diagnoses Orde r Schedule HIV-1/2 Antigen and Antibodies, Fourth Generation, with Reflexes Lab Routine Healthcare maintenance Expected: 06/10/2025 (Approximate), Expires: 06/10/2026 RPR (Monitor) with Reflex to Titer Lab Routine Healthcare maintenance Expected: 06/10/2025, Expires: 06/10/2026 Hepatitis C Antibody with Reflex to HCV, RNA, Quantitative, Real-Time PCR Lab Routine Healthcare maintenance Expected: 06/10/2025, Expires: 06/10/2026 Chlamydia/Trichomonas/Ne isseria gonorrhoeae, PCR, Urine Lab Routine Healthcare maintenance Expected: 06/10/2025 (Approximate), Expires: 06/10/2026 documented as of this encounter Visit Diagnoses Diagnosis Healthcare maintenance- Primary documented in this encounter Additional Health Concerns Assessment Noted Time PHQ-9 Depression Total Score: 10 025 2:21 PM EST documented as of this encounter Care Teams Food Service Tray Attendant Relationship Specialty Start Date End Date Roxy Pollack FNP [address] [place] [address] PCP - General Family Medicine 02/06/22 Jerel Bhagat FNP [address] [place] [address] Nurse Practitioner Family Medicine 05/09/23 documented as of this encounter
--- OUTSIDE RECORDS SUMMARY | 2025-06-10 17:00 | XMS_ITS | Encounter Summary ---
Author Organization [employer] Address [address] [place] [address] [place], [place] [address] Care Team Providers Care Sample Tester Name Role Phone Roxy Pollack Primary Care Provider [phone] Jerel Bhagat Unavailable Unavailable Reason for Visit * Reason Comments Med Refill Encounter Details Date Type Department Care Team (Late st Contact Info) Description 08/03/2022 Refill [facility] MEDICINE [address] [place] [address] Roxy Pollack FNP [address] [place] [address] Chronic pain of left knee Social History [...] Description 06/24/2025 3:00 PM EST Office Visit [facility] ADULT DENTAL [address] [place] [address] Nalini Gaviria [address] [place] [address] 07/04/2025 11:00 AM EST Office Visit [facility] ADULT DENTAL [address] [place] [address] Everette, Nalini [address] [place] [address] 09/04/2025 3:30 PM EDT Office Visit [facility] OPTOMETRY [address] [place] [address] TarLorene aviles, OD [address] [place] [address] 09/09/2025 2:30 PM EDT Office Visit [facility] CHC MED & PEDS [address] [place] [address] Roxy Pollack FNP [address] [place] [address] documented as of this encounter Visit Diagnoses Diagnosis Chronic pain of left knee documented in this encounter Additional Health Concerns Assessment Noted Time PHQ-9 Depression Total Score: 1 07/01/19 23 9:58 AM EST documented as of this encounter Care Teams Sample Tester Relationship Specialty Start Date End Date Roxy Pollack FNP [address] [place] [address] PCP - General Family Medicine 02/06/22 Jerel Bhagat FNP [address] [place] [address] Nurse Practitioner Family Medicine 05/09/23 documented as of this encounter
--- OUTSIDE RECORDS SUMMARY | 2025-06-10 17:00 | XMS_ITS | Encounter Summary ---
Author Organization [employer] Address [address] [facility] 7 [place] [address] Care Team Providers Care Academic Adviser Name Role Phone Roxy Pollack Primary Care Provider [phone] Jerel Bhagat Unavailable Unavailable Reason for Visit * Reason Comments Med Refill Encounter Details Date Type Department Care Team ([facility] st Contact Info) Description 03/25/2025 Refill [facility] CHC MED & PEDS [address] [place], [place] [id number] Roxy Pollack FNP [address] [place] [address] Anxiety Social History Tobacco Use Types Packs/Day [...] Recorded Patient Health Questionnaire-2 Score 0 09/13/2023 Internet Access Answer Date Recorded Internet Access [...] * Telephone Encounter - MAGALI Posey - 03/26/2025 4:46 PM EDT Hi! I just sent in 1 week supply so that she calls to reschedule CREATIVE SERVICES DIRECTOR visit with you, thanks! documented in this encounter Plan of Treatment Upcoming Encounters Date Type Department Care Team (Late st Contact Info) Description 06/24/2025 3:00 PM EST Office Visit [facility] ADULT DENTAL [address] [place] [address] Everette, Nalini [address] [place] [address] 07/04/2025 11:00 AM EST Office Visit [facility] ADULT DENTAL [address] [place] [address] Everette, Nalini [address] [place] [address] 09/04/2025 3:30 PM EDT Office Visit [facility] OPTOMETRY [address] [place] [address] Lorene Todd, OD [address] [place] [address] 09/09/2025 2:30 PM EDT Office Visit [facility] MED & PEDS [address] [place] [address] Roxy Pollack FNP [address] [place] [address] documented as of this encounter Visit Diagnoses Diagnosis Anxiety Anxiety state, unspecified documented in this encounter Additional Health Concerns Assessment Noted Time PHQ-9 Depression Total Score: 2 09/13/19 24 10:45 AM EDT documented as of this encounter Care Teams Academic Adviser Relationship Specialty Start Date End Date Roxy Pollack FNP [address] [place] [address] PCP - General Family Medicine 02/06/22 Jerel Bhagat FNP [address] [place] [address] Nurse Practitioner Family Medicine 05/09/23 documented as of this encounter
--- OUTSIDE RECORDS SUMMARY | 2025-06-10 17:00 | XMS_ITS | Patient Health Record ---
Author Organization [facility] Address [facility] [place] [address] Care Team Providers Care Catia Designer Name Role Phone GLENDA SWEENEY MD Primary Care Provider Reason For Referral No Information Social History Sex Observation Social History Observation Description Sex Observation Female Social History COVID-19 Social Info Question Answer Notes [place] COVID-19 [place]cke[place] estado en contacto con alguien que haya estado [place] en los pasados 14 laughlin Yes Donde [...]
--- OUTSIDE RECORDS SUMMARY | 2025-06-10 17:00 | XMS_ITS | Encounter Summary ---
Author Organization [employer] Address [address] [facility] [address], [place] [address] Care Team Providers Care Photoengraving Machine Operator/Tender Name Role Phone Roxy Pollack Primary Care Provider [phone] Jerel Bhagat Unavailable Unavailable Reason for Visit * Reason Onset Date Comments Chart Prep 06/05/2025 Encounter Details Date Type Department Care Team ([facility] Contact Info) Description 06/05/2025 Telephone [facility] MED & PEDS [address] [place] [address] Roxy Pollack FNP [address] [place] [address] Chart Prep Social History Tobacco Use Types Packs/Day Years [...] your housing situation today? I have noe amado 03/07/[address] you li [...] encounter Miscellaneous Notes * Telephone Encounter - Rebecca Dominguez MA - 06/05/2025 1:12 PM EST Chart Prep Labs: not done Images: done Referrals: complete Vaccines due: PCV20, Hep B, and HPV Screenings: LMP and PISQ Overdue care gaps: SBIRT and Tobacco documented in this encounter Plan of Treatment Upcoming Encounters Date Type Department Care Team (Late st Contact Info) Description 06/24/2025 3:00 PM EST Office Visit [facility] ADULT DENTAL [address] [place] [address] Nalini Gaviria [address] [place] [address] 07/04/2025 11:00 AM EST Office Visit [facility] ADULT DENTAL [address] [place] [address] Rene Gaviriaaris [address] [place] [address] 09/04/2025 3:30 PM EDT Office Visit [facility] OPTOMETRY [address] [place] [address] Lorene Todd, OD [address] [place], [place] 09/09/2025 2:30 PM EDT Office Visit [facility] MED & PEDS [address] [place] [address] Roxy Pollack FNP [address] [place] [address] documented as of this encounter Visit Diagnoses Not on filedocumented in this encounter Additional Health Concerns Assessment Noted Time PHQ-9 Depression Total Score: 10 025 2:21 PM EST documented as of this encounter Care Teams Photoengraving Machine Operator/Tender Relationship Specialty Start Date End Date Roxy Pollack FNP [address] [place] [address] PCP - General Family Medicine 02/06/22 Jerel Bhagat FNP [address] [place] [address] Nurse Practitioner Family Medicine 05/09/23 documented as of this encounter
--- OUTSIDE RECORDS SUMMARY | 2025-06-10 17:00 | XMS_ITS | Encounter Summary ---
Author Organization [employer] Address [address] [facility] 7 [place] [address] Care Team Providers Care Pharmaceutical Specialty Representative Name Role Phone Roxy Pollack MAGALI Primary Care Provider [phone] Jerel Bhagat Unavailable Unavailable Encounter Details Date Type Department Care Team (Latest Contact Info) Description 08/23/[address] [facility] CONVERSIONS Dental, Provider, DDS Social History [...] Description 06/24/2025 3:00 PM EST Office Visit [facility] ADULT DENTAL [address] [place] [address] [facility], Nalini [address] [place] [address] 07/04/2025 11:00 AM EST Office Visit [facility] ADULT DENTAL [address] [place] [address] Everette, Nalini [address] [place] [address] 09/04/2025 3:30 PM EDT Office Visit [facility] OPTOMETRY [address] [place] [address] Lorene Todd, OD [address] [place] [address] 09/09/2025 2:30 PM EDT Office Visit [facility] CHC MED & PEDS [address] [place] [address] Roxy Pollack FNP [address] [place] [address] documented as of this encounter Visit Diagnoses Not on filedocumented in this encounter Care Teams Pharmaceutical Specialty Representative Relationship Specialty Start Date End Date Roxy Pollack FNP [address] [place] [address] PCP - General Family Medicine 02/06/22 Jerel Bhagat FNP [address] [place] [address] Nurse Practitioner Family Medicine 05/09/23 documented as of this encounter
--- OUTSIDE RECORDS SUMMARY | 2025-06-10 17:00 | XMS_ITS | Encounter Summary ---
Author Organization [employer] Address [address] [facility] 7 [place] [address] Care Team Providers Care After School Coordinator Name Role Phone Roxy Pollack Primary Care Provider [phone] Jerel Bhagat Unavailable Unavailable Reason for Visit * Reason Comments Med Refill Encounter Details Date Type Department Care Team ([facility] st Contact Info) Description 03/21/2024 Refill [facility] MEDICINE [address] [place] [address] Jerel Bhagat FNP Anxiety Social History Tobacco [...] Description 06/24/2025 3:00 PM EST Office Visit [facility] ADULT DENTAL [address] [place] [address] [facility], [facility] [address] [place] [address] 07/04/2025 11:00 AM EST Office Visit [facility] ADULT DENTAL [address] [place] [address] [facility], Nalini [address] [place] [address] 09/04/2025 3:30 PM EDT Office Visit [facility] OPTOMETRY [address] [place] [address] Tarka, Lorene, OD [address] [place] [address] 09/09/2025 2:30 PM EDT Office Visit [facility] CHC MED & PEDS [address] [place] [address] Roxy Pollack FNP [address] [place] [address] documented as of this encounter Visit Diagnoses Diagnosis Anxiety Anxiety state, unspecified documented in this encounter Additional Health Concerns Assessment Noted Time PHQ-9 Depression Total Score: 2 09/13/19 24 10:45 AM EDT documented as of this encounter Care Teams After School Coordinator Relationship Specialty Start Date End Date Roxy Pollack FNP [address] [place] [address] PCP - General Family Medicine 02/06/22 Jerel Bhagat FNP [address] [place] [address] Nurse Practitioner Family Medicine 05/09/23 documented as of this encounter
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
--- OUTSIDE RECORDS SUMMARY | 2025-06-10 17:00 | XMS_ITS | Encounter Summary ---
Author Organization [employer] Address [address] [facility] 7 [place] [address] Care Team Providers Care Commutator Repairer Name Role Phone Roxy Pollack MAGALI Primary Care Provider [phone] Jerel Bhagat Unavailable Unavailable Encounter Details Date Type Department Care Team (Latest Contact Info) Description 10/07/2020 Abstract [facility] Dental, Provider, DDS Social History Tobacco [...] Description 06/24/2025 3:00 PM EST Office Visit [facility] ADULT DENTAL [address] [place] [address] Everette, Nalini [address] [place] [address] 07/04/2025 11:00 AM EST Office Visit [facility] ADULT DENT[facility] [address] [place] [address] Everette, Nalini [address] [place] [address] 09/04/2025 3:30 PM EDT Office Visit [facility] OPTOMETRY [address] [place] [address] Lorene Todd, OD [address] [place] [address] 09/09/2025 2:30 PM EDT Office Visit [facility] CHC MED & PEDS 505 [place], [place] [phone] Roxy Pollack FNP 505 [place] [address] documented as of this encounter Visit Diagnoses Not on filedocumented in this encounter Care Teams Commutator Repairer Relationship Specialty Start Date End Date Roxy Pollack FNP [address] [place] [address] PCP - General Family Medicine 02/06/22 Jerel Bhagat FNP [address] [place] [address] Nurse Practitioner Family Medicine 05/09/23 documented as of this encounter
--- OUTSIDE RECORDS SUMMARY | 2025-06-10 17:00 | XMS_ITS | Encounter Summary ---
Author Organization [employer] Address [address] [facility] [address], [place] [address] Care Team Providers Care It Systems Analyst Name Role Phone Roxy Pollack Primary Care Provider [phone] Jerel Bhagat Unavailable Unavailable Reason for Visit * Reason Onset Date Comments triage 08/09/2022 Encounter Details Date Type Department Care Team ([facility] st Contact Info) Description 08/09/2022 Telephone [facility] MEDICINE [address] [place] [address] Roxy Pollack FNP 505 [place] [address] triage Social History Tobacco Use Types Packs/Day [...] Pt to continue to schedule/attend Q2 week COLLECT ON DELIVERY CLERK RN appt. Pt to schedule/attend a TP appointment with PCP. At this time, pt will only be eligible to receive Tramadol refill after completing her COLLECT ON DELIVERY CLERK appt. If she misses a COLLECT ON DELIVERY CLERK appt, she must call to reschedule, which may delay her Tramadol refill. TC via P/I#[id number], no answer. Unable to leave voicemail. Attempted to call X2, same response. * Telephone Encounter - Roxie Carney RN - 08/09/2022 10:36 AM EST Call to Keri Angulo, reports having left sided knee pain that is chronic. Per pt needs to have refill of Tramdol. Pt advsied that pt needs to have COLLECT ON DELIVERY CLERK appt prior to PCP prescribing again. Pt advsied that if having severe pain can seek [facility] for evluation. Will send to COLLECT ON DELIVERY CLERK nurse to r/s missed COLLECT ON DELIVERY CLERK appt. Per pt was out of town in [place] and just arrived yesterday. PT advised of [facility] operating hours. Protocol Used: Knee Pain (Adult) [...] walk The caller accepted this outcome speaks czech documented in this encounter Plan of Treatment Upcoming Encounters Date Type Department Care Team (Late st Contact Info) Description 06/24/2025 3:00 PM EST Office Visit [facility] ADULT DENTAL [address] [place] [address] Nalini Gaviria [address] [place] [address] 07/04/2025 11:00 AM EST Office Visit [facility] ADULT DENTAL [address] [place] [address] Nalini Gaviria [address] [place] [address] 09/04/2025 3:30 PM EDT Office Visit [facility] OPTOMETRY [address] [place] [address] Tarka, Lorene, OD [address] [place] [address] 09/09/2025 2:30 PM EDT Office Visit [facility] CHC MED & PEDS 505 [place] [address] Roxy Pollack FNP [address] [place] [address] documented as of this encounter Visit Diagnoses Not on filedocumented in this encounter Additional Health Concerns Assessment Noted Time PHQ-9 Depression Total Score: 1 07/01/19 23 9:58 AM EST documented as of this encounter Care Teams It Systems Analyst Relationship Specialty Start Date End Date Roxy Pollack FNP [address] [place] [address] PCP - General Family Medicine 02/06/22 Jerel Bhagat FNP [address] [place] [address] Nurse Practitioner Family Medicine 05/09/23 documented as of this encounter
--- OUTSIDE RECORDS SUMMARY | 2025-06-10 17:00 | XMS_ITS | Encounter Summary ---
Author Organization [employer] Address [address] [facility] 7t [place] [address] Care Team Providers Care Casing Material Weigher Name Role Phone JourdanRoxy gaxiola MAGALI Primary Care Provider [phone] Jerel Bhagat Unavailable Unavailable Encounter Details Date Type Department Care Team (Latest Contact Info) Description 06/10/2025 Travel Social History Tobacco Use Types Packs/Day Years [...] Description 06/24/2025 3:00 PM EST Office Visit [facility] ADULT DENTAL [address] [place] [address] Everette, Nalini [address] [place] [address] 07/04/2025 11:00 AM EST Office Visit [facility] ADULT DENTAL [address] [place] [address] Everette, Nalini [address] [place] [address] 09/04/2025 3:30 PM EDT Office Visit [facility] OPTOMETRY [address] [place] [address] Tarka, Lorene, OD 267 [place] [address] 09/09/2025 2:30 PM EDT Office Visit [facility] CHC MED & PEDS [address] [place] [address] Roxy Pollack FNP 505 [place] [address] documented as of this encounter Visit Diagnoses Not on filedocumented in this encounter Additional Health Concerns Assessment Noted Time PHQ-9 Depression Total Score: 10 025 2:21 PM EST documented as of this encounter Care Teams Casing Material Weigher Relationship Specialty Start Date End Date Roxy Pollack FNP [address] [place] [address] PCP - General Family Medicine 02/06/22 Jerel Bhagat FNP [address] [place] [address] Nurse Practitioner Family Medicine 05/09/23 documented as of this encounter
--- OUTSIDE RECORDS SUMMARY | 2025-06-10 17:00 | XMS_ITS | Encounter Summary ---
Author Organization [employer] Address [address] [facility] [address] [address] Care Team Providers Care Millwright Name Role Phone Roxy Pollack Primary Care Provider [phone] Jerel Bhagat Unavailable Unavailable Reason for Visit * Reason Onset Date Comments Appointment Request 03/21/2025 Encounter Details Date Type Department Care Team ([facility] st Contact Info) Description 03/21/2025 Telephone [facility] [address] [place] [address] Roxy Pollack FNP [address] [place] [address] Appointment Request Social History Tobacco Use Types Packs/Day Years [...] encounter Miscellaneous Notes * Telephone Encounter - Clau Mccain - 03/21/2025 10:06 AM EDT Tc from pt requesting to reschedule appointment from 03/20 Contact pt at [phone] documented in this encounter Plan of Treatment Upcoming Encounters Date Type Department Care Team ([facility] st Contact Info) Description 06/24/2025 3:00 PM EST Office Visit [facility] ADULT [facility] [address] [place] [address] [facility] Nalini [address] [place] [address] 07/04/2025 11:00 AM EST Office Visit [facility]ULT [facility] [address] [place] [address] Everette, [facility] [address] [place] [address] 09/04/2025 3:30 PM EDT Office Visit [facility] OPT[facility] [address] [place] [address] RenettakaLorene, OD [address] [place] [address] 09/09/2025 2:30 PM EDT Office Visit [facility] CHC MED & PEDS [address] [place] [address] Roxy Pollack FNP [address] [place] [address] documented as of this encounter Visit Diagnoses Not on filedocumented in this encounter Additional Health Concerns Assessment Noted Time PHQ-9 Depression Total Score: 2 09/13/19 24 10:45 AM EDT documented as of this encounter Care Teams Millwright Relationship Specialty Start Date End Date Roxy Pollack FNP [address] [place] [address] PCP - General Family Medicine 02/06/22 Jerel Bhagat FNP [address] [place] [address] Nurse Practitioner Family Medicine 05/09/23 documented as of this encounter
--- OUTSIDE RECORDS SUMMARY | 2025-06-10 17:00 | XMS_ITS | Encounter Summary ---
Author Organization [employer] Address [address] [place] [address] Care Team Providers Care Die Sinker Apprentice Name Role Phone Roxy Pollack Primary Care Provider [phone] Jerel Bhagat Unavailable Unavailable Reason for Visit * Reason Comments Med Refill Encounter Details Date Type Department Care Team ([facility] st Contact Info) Description 01/27/2025 Refill [facility] CHC MED & PEDS [address] [place], [place] [phone] Roxy Pollack FNP [address] [place] [address] Bipolar affective disorder, remission status unspecified (CMS/[facility]) Social History Tobacco Use Types Packs/Day Years [...] the past 12 months, has t he [employer], gas, oil or water company threatened to [...] Description 06/24/2025 3:00 PM EST Office Visit [facility] ADULT DENTAL [address] [place] [address] Nalini Gaviria [address] [place] [address] 07/04/2025 11:00 AM EST Office Visit [facility] ADULT DENTAL [address] [place] [address] Nalini Gaviria [address] [place] [address] 09/04/2025 3:30 PM EDT Office Visit [facility] OPTOMETRY [address] [place] [address] Tarka, Lorene, OD [address] [place] [address] 09/09/2025 2:30 PM EDT Office Visit [facility] CHC MED & PEDS [address] [place] [address] Roxy Pollack FNP [address] [place] [address] documented as of this encounter Visit Diagnoses Diagnosis Bipolar affective disorder, remission status unspecified (CMS/HCC) ([facility]) documented in this encounter Additional Health Concerns Assessment Noted Time PHQ-9 Depression Total Score: 2 09/13/19 24 10:45 AM EDT documented as of this encounter Care Teams Die Sinker Apprentice Relationship Specialty Start Date End Date Roxy Pollack FNP [address] [place] [address] PCP - General Family Medicine 02/06/22 Jerel Bhagat FNP [address] [place] [address] Nurse Practitioner Family Medicine 05/09/23 documented as of this encounter
--- OUTSIDE RECORDS SUMMARY | 2025-06-10 17:00 | XMS_ITS | Encounter Summary ---
Author Organization [employer] Address [address] [place] [address] [address], [place] [address] Care Team Providers Care Conservation Assistant Name Role Phone Roxy Pollack Primary Care Provider [phone] Jerel Bhagat Unavailable Unavailable Reason for Visit * Reason Comments Med Refill Encounter Details Date Type Department Care Team (Late st Contact Info) Description 03/04/2023 Refill [facility] MEDICINE [address] [place] [address] Roxy Pollack FNP [address] [place] [address] Social History Tobacco Use Types Packs/Day Years [...] Description 06/24/2025 3:00 PM EST Office Visit [facility] ADULT DENTAL [address] [place] [address] Nalini Gaviria [address] [place] [address] 07/04/2025 11:00 AM EST Office Visit [facility] ADULT DENTAL [address] [place] [address] Everette, Nalini [address] [place] [address] 09/04/2025 3:30 PM EDT Office Visit [facility] OPTOMETRY [address] [place] [address] TarLorene aviles, OD [address] [place] [address] 09/09/2025 2:30 PM EDT Office Visit [facility] CHC MED & PEDS [address] [place], [place] [phone] Roxy Pollack FNP [address] [place] [address] documented as of this encounter Visit Diagnoses Not on filedocumented in this encounter Additional Health Concerns Assessment Noted Time PHQ-9 Depression Total Score: 0 12/17/19 23 10:47 AM EDT documented as of this encounter Care Teams Conservation Assistant Relationship Specialty Start Date End Date Roxy Pollack FNP [address] [place] [address] PCP - General Family Medicine 02/06/22 Jerel Bhagat FNP [address] [place], [place] Nurse Practitioner Family Medicine 05/09/23 documented as of this encounter
--- OUTSIDE RECORDS SUMMARY | 2025-06-10 17:00 | XMS_ITS | Encounter Summary ---
Author Organization [employer] Address [address] [facility] 7 [place] [address] Care Team Providers Care Senior Talent Acquisition Specialist Name Role Phone Roxy Pollack Primary Care Provider [phone] Jerel Bhagat Unavailable Unavailable Reason for Visit * Reason Comments Med Refill Encounter Details Date Type Department Care Team ([facility] st Contact Info) Description 06/23/[address] [facility] MEDICINE [address] [place] [address] Jerel Bhagat FNP Anxiety Social History Tobacco [...] RN - 06/24/2022 8:17 AM EST Has CYTOLOGY SUPERVISOR RV appt today. Will review medication refill request at that time and forward to PCP. documented in this encounter Plan of Treatment Upcoming Encounters Date Type Department Care Team (Late st Contact Info) Description 06/24/2025 3:00 PM EST Office Visit [facility] ADULT DENTAL [address] [place] [address] Nalini Gaviria [address] [place] [address] 07/04/2025 11:00 AM EST Office Visit [facility] ADULT DENTAL [address] [place] [address] Nalini Gaviria [address] [place] [address] 09/04/2025 3:30 PM EDT Office Visit [facility] OPTOMETRY [address] [place] [address] Tarka, Lorene, OD [address] [place] [address] 09/09/2025 2:30 PM EDT Office Visit [facility] CHC MED & PEDS 505 [place] [address] Roxy Pollack FNP 505 [place] [address] documented as of this encounter Visit Diagnoses Diagnosis Anxiety Anxiety state, unspecified documented in this encounter Care Teams Senior Talent Acquisition Specialist Relationship Specialty Start Date End Date Roxy Pollack FNP [address] [place] [address] PCP - General Family Medicine 02/06/22 Jerel Bhagat FNP [address] [place] [address] Nurse Practitioner Family Medicine 05/09/23 documented as of this encounter
--- OUTSIDE RECORDS SUMMARY | 2025-06-10 17:00 | XMS_ITS | Encounter Summary ---
Author Organization [employer] Address [address] [facility] [address], [place] [address] Care Team Providers Care Liner Roll Changer Name Role Phone Roxy Pollack Primary Care Provider [phone] Jerel Bhagat Unavailable Unavailable Reason for Visit * Reason Comments Med Refill Encounter Details Date Type Department Care Team ([facility] st Contact Info) Description 02/14/2025 Refill [facility] CHC MED & PEDS [address] [place], [place] [phone] Roxy Pollack FNP [address] [place] [address] Anxiety Social History Tobacco Use Types Packs/Day [...] with others, in a hotel, in a care home, living outside on the street, on [...] the past 12 months, has t he [employer] gas, oil or water [employer] threatened to shut off services in your [...] Telephone Encounter - Paulina Lugo RN - 02/15/2025 11:45 AM EDT TC to pt via S ID# [id number]. Initial BONE CHAR KILN TENDER NV scheduled for 03/20/25 @ 2:15pm. * Telephone Encounter - MAGALI Posey - 02/14/2025 5:18 PM EDT Luis Fernando Saavedra was previously seen by Omar Momin, razor grinder, but she is currently in processof switching to new psych, although I do not know when that will be. In the meantime, I will plan to bridge prescription. Can she please be scheduled for BONE CHAR KILN TENDER appt? She is Tier 2 and the last UTOX I see on file is from 05/30/24. Thank you! documented in this encounter Plan of Treatment Upcoming Encounters Date Type Department Care Team (Late st Contact Info) Description 06/24/2025 3:00 PM EST Office Visit [facility] ADULT DENTAL 230 [facility] [place] [address] Nalini Gaviria [address] [facility] [place] [address] 07/04/2025 11:00 AM EST Office Visit [facility] ADULT DENTAL [address] [facility] [place] [address] Nalini Gaviria [address] [facility] [place] [address] 09/04/2025 3:30 PM EDT Office Visit [facility] OPTOMETRY [address] [place] [address] Tarka, Lorene, OD [address] [place] [address] 09/09/2025 2:30 PM EDT Office Visit [facility] CHC MED & PEDS [address] [place], [place] [phone] Roxy Pollack FNP [address] [place] [address] documented as of this encounter Visit Diagnoses Diagnosis Anxiety Anxiety state, unspecified documented in this encounter Additional Health Concerns Assessment Noted Time PHQ-9 Depression Total Score: 2 09/13/19 24 10:45 AM EDT documented as of this encounter Care Teams Liner Roll Changer Relationship Specialty Start Date End Date Roxy Pollack FNP [address] [place] [address] PCP - General Family Medicine 02/06/22 Jerel Bhagat FNP [address] [place] [address] Nurse Practitioner Family Medicine 05/09/23 documented as of this encounter
[2025-06-11 07:48] LABS: HIV Num 1 0.07 S/CO (0.00-0.99); ~HepC Num1 0.12 S/CO (0.00-0.79); ~Hepatitis C Antibody Nonreactive (Nonreactive)
== END 2025-06-10 14:37 | disposition home or self-care (01) ==
LOC: HO.CHCLDS 14:36
PROVIDERS: Visit Provider Registered Nurse
DX: Z00.00 Encounter for general adult medical examination without abnormal findings (principal); Z11.4 Encounter for screening for human immunodeficiency virus [HIV]; Z11.59 Encounter for screening for other viral diseases; Z11.3 Encounter for screening for infections with a predominantly sexual mode of transmission
CPT/HCPCS: 36415; 86592; 86803; 87389